=== PATIENT | male | born 1945 | race Caucasian/White ===

== ENCOUNTER 2016-07-08 21:01 | Emergency (ER) | payer BC, MEDICARE ==
[~2016-07-08] VITALS: Ht 175.3 cm; Wt 95.5 kg
[~2016-07-08 21:01] MED LIST: ALMACONE 360 M360 ML PO; AMOXICILLIN 8751 TAB PO; APRESOLINE PO; APRESOLINE50 MG PO; ASPIRIN 32325 MG/TAB PO; CARDI-OMEGA1000 MG PO; CARDIZEM CD 18180 MG PO; CARDIZEM LA120 MG PO; CELEBREX 200MG200 MG PO; CEPHALEXIN500 M1 PO; COLACE 100100 MG/CAP PO; COUMADIN 22.5 MG/TAB PO; COUMADIN 5MG5 MG/TAB PO; COUMADIN 77.5 MG/TAB PO; CUBICIN 500MG500 MG IV; DAZIDOX10 MG PO; DAZIDOX20 MG PO; DEBROX OT; DIGOXIN PO; DOXYCYCLINE 10100 MG PO; DULCOLAX S10 MG/SUPP RC; DULCOLAX TAB5 MG PO; ENDOCET 325 MG-1 TA1 PO; FERROUS SU325 MG/TAB PO; FISH OIL 1000MG1 CAP PO; FISH OIL1000 MG PO; FLAGYL500 MG PO; FLOMAX 0.40.4 MG/CAP PO; FLOMAX0.4 MG PO; FOLIC ACID PO; FORTAMET1000 MG PO; FUROSEMIDE20 MG PO; GABAPENTIN800 MG PO; GLUCOPHAGE1000 MG PO; GLUCOSAMINE/CHONDROI PO; GLUMETZA1000 MG PO; GLUMETZA500 MG PO; GLYBURIDE/METFORMIN PO; HEPARIN 50500 U/5 ML IV; HORIZANT600 MG PO; INVANZ1 G1 IV; IRON325 M1 PO; IRON325 M2 PO; JANTOVEN5 MG PO; K-DUR 2020 MEQ PO; KLOR-CON 1010 MEQ PO; KLOR-CON M2020 MEQ PO; LANTUS SOLOS100 U/ML SC; LANTUS100 U/ML SC; LANTUS100 U/ML SQ; LASIX 20MG TABL20 MG PO; LASIX 40MG TABL40 MG PO; LASIX20 MG PO; LEVAQUIN 5500 MG/TA1 PO; LISINOPRIL20 MG PO; LOPRESSOR 225 MG/TAB PO; LOPRESSOR100 MG PO; LOVENOX; LOVENOX 100100 MG/ML SQ; MAX-EPA1000 MG PO; MEGACE 40MG40 MG/TAB PO; METFORMIN1000 MG PO; METOPROLOL100 MG PO; MILK OF MA400 MG/52 PO; MINOCYCLIN100 MG/CAP PO; MULTI VITAMINS1 TAB PO; NABUMETONE750 MG PO; NEURONTIN600 MG/TAB PO; NORCO 325 MG-51 TAB PO; NORCO 325 MG-7.1 TAB PO; NORVASC 10MG10 MG PO; NORVASC10 MG PO; NS INT FLUSH 1010 ML IV; OXYCODONE30 MG PO; PERCOCET 325 MG1 TAB PO; PRAVACHOL 40MG40 MG PO; PREDNISONE10 MG PO; PRINIVIL20 MG PO; PROPAFENONE PO; PROTONIX 40MG T40 MG PO; PROTONIX40 MG PO; RIFADIN300 MG; RIFADIN300 MG PO; ROCEPHIN 2GM VIAL2 G IV; ROXICODONE 55 MG/TAB PO; RYTHMOL225 MG PO; SIMVASTATIN20 MG PO; STOOL SOFTENER100 M2 PO; TOPROL XL100 MG PO; TRIAMTERENE/HCT1 CAP PO; TRIAMTERENE/HCT1 TAB PO; TYLENOL 325MG325 MG PO; TYLENOL 500MG500 MG PO; TYLENOL SU650 MG/SUP RC; VANCOCIN H125 MG/CAP PO; VANCOCIN HCL500 MG IV; VANCOMYCIN 11 G/VIAL IV; VANCOMYCIN IV; VITAMIN C500 MG PO; VOLTAREN 75 DR75 MG PO; WHCH; XARELTO10 MG PO; ZAROXOLYN 2.52.5 MG PO; ZAROXOLYN5 MG PO; ZEBETA10 MG PO; ZOCOR20 MG PO; ZOLOFT 50MG50 MG PO; ZOLOFT50 MG PO; ZOVIRAX400 MG PO
[2016-07-08 21:09] VITALS: TEMP 98.6
[2016-07-08 22:06] LABS: BASO % 0.2 % (0.0-2.0); EOS % 0.5 % (0-4.0); GRAN # 7.1 (1.4-6.5); GRAN % 83.4 % (42.2-75.2); HEMATOCRIT 35.5 % (42.0-52.0); LYMPH # 0.6 (1.2-3.4); LYMPH % 7.2 % (20.0-51.0); MEAN CELL VOLUME 91 fl (80.0-100.0); MEAN CORPUSCULAR HEMOGLOBIN 31 pg (27.0-31.0); MEAN CORPUSCULAR HGB CONC 34 g/dl (33.0-37.0); MEAN PLATELET VOLUME 11.3 fl (7.4-10.4); MONO # 0.7 (0.1-0.6); MONO % 8.5 % (1.7-9.3); PLATELET COUNT 168 K/mm3 (130-400); REDCELL DISTRIBUTION WIDTH-CV 14.3 % (11.5-14.5); WHITE BLOOD COUNT 8.5 K/mm3 (4.8-10.8)
[2016-07-08 22:19] LABS: ALBUMIN 4.2 gm/dL (3.5-5.0); CALCIUM 9.2 mg/dL (8.4-10.2); CREATININE, serum 1.5 mg/dL (0.66-1.25); POTASSIUM 4.6 mmol/L (3.4-5.0); TOTAL PROTEIN 7.8 gm/dL (6.4-8.2)
[2016-07-08 22:48] LABS: INR 2.3 (0.8-3.0); PROTHROMBIN TIME 26.1 SECONDS (9.7-12.8)
[2016-07-08 23:37] LABS: PH 5 (5-8); SQUAMOUS EPITHELIAL 0-2 /hpf; URINE APPEARANCE Clear; URINE BACTERIA None Seen /hpf; URINE BILIRUBIN Negative (NEGATIVE); URINE BLOOD Negative (NEGATIVE); URINE COLOR Yellow; URINE GLUCOSE 1+ (NEGATIVE); URINE KETONE Negative (NEGATIVE); URINE UROBILINOGEN Negative (NEGATIVE); URINE WBC 0-2 /hpf
[2016-07-09 00:47] VITALS: BP 134/86; PULSE 74
== END 2016-07-09 00:51 | disposition home or self-care (01) ==
LOC: COL.ER 21:01
PROVIDERS: Emergency Medicine; Nurse Practitioner
DX: E86.0 Dehydration (principal); M25.522 Pain in left elbow; M79.602 Pain in left arm; R53.1 Weakness; R41.0 Disorientation, unspecified; I48.91 Unspecified atrial fibrillation; Z79.01 Long term (current) use of anticoagulants; E11.9 Type 2 diabetes mellitus without complications; Z79.84 Long term (current) use of oral hypoglycemic drugs; I11.0 Hypertensive heart disease with heart failure; I50.9 Heart failure, unspecified; Z86.73 Personal history of transient ischemic attack (TIA), and cerebral infarction without residual deficits; W06.XXXA Fall from bed, initial encounter; Y92.003 Bedroom of unspecified non-institutional (private) residence as the place of occurrence of the external cause
CPT/HCPCS: J7040

== ENCOUNTER 2016-09-24 15:15 | Outpatient (RCR) | payer BC, MEDICARE | END 2016-10-09 10:33 | disposition home or self-care (01) | LOC: WSPT 15:15 | DX: R53.1 Weakness (principal) | CPT/HCPCS: G8978-GP; G8979-GP; G8980-GP ==

== ENCOUNTER → 2016-11-25 | Outpatient (CLI) | payer BC, MEDICARE ==
[~2016-11-25] MED LIST changes: +OMEGA-3 1000 MG1 CAP PO; +ZOLOFT 100MG100 MG PO
== END ==
LOC: COL.RAD 08:00
DX: R41.0 Disorientation, unspecified (principal); R42 Dizziness and giddiness

== ENCOUNTER 2016-11-27 12:18 | Observation (INO) | payer BC, MEDICARE ==
[~2016-11-27] VITALS: Ht 175.3 cm; Wt 97.7 kg
[~2016-11-27 12:18] MED LIST changes: -OMEGA-3 1000 MG1 CAP PO; -ZOLOFT 100MG100 MG PO
[2016-11-27 13:53] LABS: BASO % 0.3 % (0.0-2.0); EOS # 0.1 (0.0-0.7); GRAN # 5.5 (1.4-6.5); GRAN % 77.9 % (42.2-75.2); LYMPH # 0.9 (1.2-3.4); LYMPH % 12.4 % (20.0-51.0); MEAN CELL VOLUME 92 fl (80.0-100.0); MEAN CORPUSCULAR HGB CONC 33 g/dl (33.0-37.0); MONO # 0.5 (0.1-0.6); MONO % 7.1 % (1.7-9.3); PLATELET COUNT 167 K/mm3 (130-400); RED BLOOD COUNT 3.95 M/mm3 (4.20-5.60); REDCELL DISTRIBUTION WIDTH-CV 14.3 % (11.5-14.5)
[2016-11-27 13:59] LABS: HEMATOCRIT 36.3 % (42.0-52.0); HEMOGLOBIN 11.9 g/dl (13.5-18.0); MEAN CORPUSCULAR HEMOGLOBIN 30 pg (27.0-31.0)
[2016-11-27 14:00] LABS: INR 1.8 (0.8-3.0); PROTHROMBIN TIME 20.4 SECONDS (9.7-12.8)
[2016-11-27 14:03] LABS: PARTIAL THROMBOPLASTIN TIME 34.9 SECONDS (26.0-37.0)
[2016-11-27 14:07] LABS: ADJUSTED CALCIUM 9.2 mg/dL (8.4-10.2); BILIRUBIN,TOTAL 0.7 mg/dL (0.0-1.0); CALCIUM 9.2 mg/dL (8.4-10.2); CREATININE, serum 1.53 mg/dL (0.66-1.25); POTASSIUM 4.4 mmol/L (3.4-5.0); TOTAL PROTEIN 6.8 gm/dL (6.4-8.2)
[2016-11-27 14:18] LABS: TROPONIN-I 0.02 ng/mL (0.000-0.034)
[2016-11-27] MEDS ORDERED: OMEGA-3 1000 MG1 CAP PO (17:17)
[2016-11-27] MEDS ORDERED: DOXYCYCLINE 10100 MG PO (18:59)
[2016-11-27 19:53] VITALS: BP 167/82; PULSE 57; TEMP 98.2
[2016-11-28] VITALS: BP 150/86; PULSE 80; TEMP 98.4
[2016-11-28 04:03] VITALS: BP 143/65; PULSE 82; TEMP 97.1
[2016-11-28 08:17] VITALS: BP 153/77; PULSE 65; TEMP 98.4
[2016-11-28 12:03] VITALS: BP 93/66; PULSE 108; TEMP 97.9
[2016-11-28 12:07] VITALS: BP 153/83; PULSE 93
== END 2016-11-28 16:26 | disposition home or self-care (01) ==
LOC: COL.ER 12:18 → MEDICAL 16:32
PROVIDERS: Emergency Medicine
DX: I48.2 Chronic atrial fibrillation (principal); I08.0 Rheumatic disorders of both mitral and aortic valves; M19.90 Unspecified osteoarthritis, unspecified site; E11.9 Type 2 diabetes mellitus without complications; I25.10 Atherosclerotic heart disease of native coronary artery without angina pectoris; I11.0 Hypertensive heart disease with heart failure; I50.9 Heart failure, unspecified; R41.82 Altered mental status, unspecified; Z79.01 Long term (current) use of anticoagulants; Z79.4 Long term (current) use of insulin; Z79.84 Long term (current) use of oral hypoglycemic drugs; Z96.653 Presence of artificial knee joint, bilateral; Z95.2 Presence of prosthetic heart valve
CPT/HCPCS: G0378

== ENCOUNTER 2017-02-05 14:02 | Observation (INO) | payer BC, MEDICARE ==
[~2017-02-05] VITALS: Ht 175.3 cm; Wt 99.4 kg
[~2017-02-05 14:02] MED LIST changes: +OMEGA-3 1000 MG1 CAP PO
[2017-02-05 15:57] VITALS: BP 174/90; PULSE 82; TEMP 97.7
[2017-02-05 20:33] VITALS: BP 178/106; PULSE 50; TEMP 99.1
[2017-02-06 00:44] VITALS: BP 188/86; PULSE 83; TEMP 98.4
[2017-02-06 03:43] VITALS: BP 160/92; PULSE 92; TEMP 97.5
[2017-02-06 08:08] VITALS: BP 156/105; PULSE 92; TEMP 98.1
[2017-02-06 08:19] LABS: THYROID STIMULATING HORMONE 1.25 uIU/mL (0.465-4.680); THYROXINE (T4)-TOTAL 8.6 ug/dL (5.5-11.0)
[2017-02-06 11:24] VITALS: BP 180/116; PULSE 69; TEMP 98.4
[2017-02-06 15:46] VITALS: BP 167/81; PULSE 83; TEMP 98.4
[2017-02-06 18:57] LABS: HOMOCYSTEINE 16.6 umol/L (5.5-16.2)
[2017-02-06 23:58] VITALS: BP 184/89; PULSE 82; TEMP 99.5
[2017-02-07 04:06] VITALS: BP 188/90; PULSE 82; TEMP 97.5
[2017-02-07 08:04] VITALS: BP 197/110; PULSE 75; TEMP 98.7
[2017-02-07 10:58] VITALS: BP 164/102; PULSE 63; TEMP 98.5
[2017-02-07 15:00] VITALS: BP 157/112
[2017-02-07 17:22] VITALS: BP 174/88; PULSE 92; TEMP 97.8
[2017-02-07 20:00] VITALS: BP 169/98; PULSE 75; TEMP 98.1
[2017-02-08] VITALS (7 sets, daily range): BP systolic 163–198; BP diastolic 83–110; PULSE 51–75; TEMP 97.7–98.4
[2017-02-08 14:59] LABS: ALBUMIN FRACTION 3.3 g/dL (2.6-4.5); ALBUMIN PERCENTAGE 54.3 % (48.7-61.8); ALPHA 1 FRACTION 0.4 g/dL (0.3-0.5); ALPHA 1 PERCENTAGE 6.7 % (3.4-8.3); ALPHA 2 FRACTION 0.8 g/dL (0.6-1.2); ALPHA 2 PERCENTAGE 13.5 % (8.4-17.5); BETA 1 FRACTION 0.4 g/dL (0.4-0.6); BETA 1 PERCENTAGE 6.5 % (5.4-8.9); BETA 2 FRACTION 0.4 g/dL (0.2-0.5); BETA 2 PERCENTAGE 6.7 % (3.8-7.7); GAMMA FRACTION 0.8 g/dL (0.4-1.7); GAMMA PERCENTAGE 12.3 % (8.1-23.0); SERUM PROTEIN TOTAL 6.1 g/dL (6.0-7.6)
[2017-02-09 03:24] VITALS: BP 184/88; PULSE 80; TEMP 98.3
[2017-02-09 07:39] VITALS: BP 182/95; PULSE 58; TEMP 98.9
[2017-02-09 11:35] VITALS: BP 157/94; PULSE 98; TEMP 98
[2017-02-09 15:37] VITALS: BP 162/96; PULSE 80; TEMP 97.7
[2017-02-09] MEDS ORDERED: ZOLOFT 100MG100 MG PO (16:01)
[2017-02-10 16:02] LABS: CADMIUM BLOOD 0.3 ng/mL (0.0-4.9); MERCURY,SERUM <1 ng/mL (0-9)
== END 2017-02-09 21:19 | disposition home health service (06) ==
LOC: MEDICAL 14:02
PROVIDERS: Psychiatry & Neurology Neurology
DX: M54.5 Low back pain (principal); E11.40 Type 2 diabetes mellitus with diabetic neuropathy, unspecified; I48.91 Unspecified atrial fibrillation; M86.9 Osteomyelitis, unspecified; I10 Essential (primary) hypertension; F32.9 Major depressive disorder, single episode, unspecified; D64.9 Anemia, unspecified; I35.8 Other nonrheumatic aortic valve disorders; I25.10 Atherosclerotic heart disease of native coronary artery without angina pectoris; G03.9 Meningitis, unspecified; Z79.01 Long term (current) use of anticoagulants; Z79.4 Long term (current) use of insulin; Z79.84 Long term (current) use of oral hypoglycemic drugs; Z96.653 Presence of artificial knee joint, bilateral; Z95.2 Presence of prosthetic heart valve; Z83.3 Family history of diabetes mellitus; Z82.3 Family history of stroke
CPT/HCPCS: G0378; G0379; G8978-GP; G8979-GP; G8987-GO; G8988-GO

== ENCOUNTER 2017-02-25 17:35 | Observation (INO) | payer BC, MEDICARE ==
[~2017-02-25] VITALS: Ht 175.3 cm; Wt 93.7 kg
[~2017-02-25 17:35] MED LIST changes: +ZOLOFT 100MG100 MG PO
[2017-02-25 18:23] VITALS: BP 133/94; PULSE 118; TEMP 98.3
[2017-02-25 18:48] LABS: BASO % 0.4 % (0.0-2.0); EOS % 0.4 % (0-4.0); GRAN # 6.3 (1.4-6.5); HEMATOCRIT 39.8 % (42.0-52.0); HEMOGLOBIN 12.8 g/dl (13.5-18.0); LYMPH # 0.9 (1.2-3.4); LYMPH % 11.3 % (20.0-51.0); MEAN CELL VOLUME 90 fl (80.0-100.0); MEAN CORPUSCULAR HEMOGLOBIN 29 pg (27.0-31.0); MEAN CORPUSCULAR HGB CONC 32 g/dl (33.0-37.0); MEAN PLATELET VOLUME 11.7 fl (7.4-10.4); MONO # 0.7 (0.1-0.6); MONO % 8.7 % (1.7-9.3); PLATELET COUNT 175 K/mm3 (130-400); RED BLOOD COUNT 4.41 M/mm3 (4.20-5.60); REDCELL DISTRIBUTION WIDTH-CV 14.7 % (11.5-14.5)
[2017-02-25 19:01] LABS: ALBUMIN 3.9 gm/dL (3.5-5.0); BILIRUBIN,TOTAL 0.9 mg/dL (0.0-1.0); C-REACTIVE PROTEIN 2.8 mg/dL (0.0-0.9); CALCIUM 8.9 mg/dL (8.4-10.2); CREATININE, serum 1.54 mg/dL (0.66-1.25); POTASSIUM 4.4 mmol/L (3.4-5.0)
[2017-02-25 21:11] LABS: ERYTHROCYTE SEDIMENTATION RATE 18 mm/hr (0-30)
[2017-02-25 21:40] VITALS: BP 136/85; PULSE 65; TEMP 97.1
[2017-02-26] VITALS: BP 158/95; PULSE 75; TEMP 97.9
[2017-02-26 07:59] VITALS: BP 170/93; PULSE 69; TEMP 97.6
[2017-02-26 12:12] VITALS: BP 166/95; PULSE 94; TEMP 97.4
[2017-02-26 16:13] VITALS: BP 131/74; PULSE 71; TEMP 98.4
[2017-02-26 19:55] VITALS: BP 140/77; PULSE 75; TEMP 97.9
[2017-02-27 00:33] VITALS: BP 157/91; PULSE 80; TEMP 97.8
[2017-02-27 04:24] VITALS: BP 175/98; PULSE 83; TEMP 97.9
[2017-02-27 07:40] VITALS: BP 164/110; PULSE 98; TEMP 97.3
[2017-02-27 12:14] VITALS: BP 172/100; PULSE 861; TEMP 98.7
== END 2017-02-27 16:51 | disposition home or self-care (01) ==
LOC: MEDICAL 17:35
PROVIDERS: Emergency Medicine
DX: R53.1 Weakness (principal); M86.60 Other chronic osteomyelitis, unspecified site; E11.9 Type 2 diabetes mellitus without complications; I10 Essential (primary) hypertension; N40.0 Benign prostatic hyperplasia without lower urinary tract symptoms; I48.91 Unspecified atrial fibrillation; F32.9 Major depressive disorder, single episode, unspecified; Z79.84 Long term (current) use of oral hypoglycemic drugs; Z79.01 Long term (current) use of anticoagulants
CPT/HCPCS: G0378; G0379; G8978-GP; G8979-GP

== ENCOUNTER 2017-04-15 21:33 | Emergency (ER) | payer BC, MEDICARE ==
[~2017-04-15] VITALS: Ht 172.7 cm; Wt 95.5 kg
[2017-04-15 21:37] VITALS: TEMP 98.9
[2017-04-15 22:06] LABS: BASO % 0.1 % (0.0-2.0); EOS # 0.1 (0.0-0.7); EOS % 1.6 % (0-4.0); GRAN # 6.2 (1.4-6.5); GRAN % 81.3 % (42.2-75.2); HEMATOCRIT 37.9 % (42.0-52.0); HEMOGLOBIN 12.2 g/dl (13.5-18.0); LYMPH # 0.8 (1.2-3.4); LYMPH % 10.6 % (20.0-51.0); MEAN CELL VOLUME 92 fl (80.0-100.0); MEAN CORPUSCULAR HEMOGLOBIN 30 pg (27.0-31.0); MEAN CORPUSCULAR HGB CONC 32 g/dl (33.0-37.0); MEAN PLATELET VOLUME 11.5 fl (7.4-10.4); MONO # 0.4 (0.1-0.6); MONO % 5.7 % (1.7-9.3); PLATELET COUNT 166 K/mm3 (130-400); RED BLOOD COUNT 4.12 M/mm3 (4.20-5.60); WHITE BLOOD COUNT 7.7 K/mm3 (4.8-10.8)
[2017-04-15 22:13] LABS: INR 1.7 (0.8-3.0); PROTHROMBIN TIME 19.7 SECONDS (9.7-12.8)
[2017-04-15 22:17] LABS: ADJUSTED CALCIUM 8.4 mg/dL (8.4-10.2); ALBUMIN 4.2 gm/dL (3.5-5.0); BILIRUBIN,TOTAL 0.6 mg/dL (0.0-1.0); CALCIUM 8.6 mg/dL (8.4-10.2); CREATININE, serum 1.25 mg/dL (0.66-1.25); POTASSIUM 3.7 mmol/L (3.4-5.0); TOTAL PROTEIN 7.5 gm/dL (6.4-8.2)
[2017-04-15] MEDS ORDERED: ZOLOFT 50MG50 MG PO (22:21)
[2017-04-15] MEDS ORDERED: ZESTRIL 20MG TA20 MG PO (22:22)
[2017-04-15] MEDS ORDERED: NORCO 325 MG-7.1 TAB PO (22:22)
[2017-04-15 22:27] LABS: TROPONIN-I 0.015 ng/mL (0.000-0.034)
[2017-04-15 23:03] VITALS: BP 173/113; PULSE 109
== END 2017-04-15 23:03 | disposition short-term general hospital (02) ==
LOC: COL.ER 21:33
PROVIDERS: Family Medicine
DX: S06.6X0A Traumatic subarachnoid hemorrhage without loss of consciousness, initial encounter (principal); S06.5X0A Traumatic subdural hemorrhage without loss of consciousness, initial encounter; I48.91 Unspecified atrial fibrillation; I25.10 Atherosclerotic heart disease of native coronary artery without angina pectoris; Z79.84 Long term (current) use of oral hypoglycemic drugs; Z79.01 Long term (current) use of anticoagulants; Z95.1 Presence of aortocoronary bypass graft; Z96.659 Presence of unspecified artificial knee joint; Z98.890 Other specified postprocedural states; W19.XXXA Unspecified fall, initial encounter; Y92.009 Unspecified place in unspecified non-institutional (private) residence as the place of occurrence of the external cause
CPT/HCPCS: C9132; J2405; J3430; J7050

== ENCOUNTER 2017-04-22 13:28 | Inpatient (IN) | payer BC, MEDICARE ==
[~2017-04-22] VITALS: Ht 172.7 cm; Wt 88.1 kg
[~2017-04-22 13:28] MED LIST changes: +ZESTRIL40 MG PO; +ZOLOFT 25MG25 MG PO
[2017-04-22] MEDS ORDERED: AMOXICILLIN 8751 TAB PO (14:52)
[2017-04-22] MEDS ORDERED: CATAPRES 0.1MG0.1 MG PO (14:53)
[2017-04-22] MEDS ORDERED: APRESOLINE 25MG25 MG PO (14:54)
[2017-04-22] MEDS ORDERED: DEPAKENE250 MG PO (14:56)
[2017-04-22] MEDS ORDERED: TIAZAC300 MG PO (14:57)
[2017-04-22] MEDS ORDERED: OXY IR5 MG PO (15:01)
[2017-04-22] MEDS ORDERED: IRON TABLETS325 MG PO (15:06)
[2017-04-22 17:15] VITALS: BP 155/98; PULSE 93; TEMP 97.9
[2017-04-22 19:39] VITALS: BP 178/100; PULSE 90; TEMP 97.6
[2017-04-22 19:40] VITALS: BP 178/100; PULSE 90; TEMP 97.6
[2017-04-22 20:03] VITALS: BP 160/83
[2017-04-23 04:26] VITALS: BP 154/97; PULSE 91; TEMP 98.1
[2017-04-23 08:33] LABS: CALCIUM 9.1 mg/dL (8.4-10.2); CREATININE, serum 0.8 mg/dL (0.66-1.25); POTASSIUM 3.3 mmol/L (3.4-5.0)
[2017-04-23 14:28] VITALS: BP 113/68; PULSE 55; TEMP 96.5
[2017-04-23 18:20] VITALS: BP 132/74; PULSE 64; TEMP 97.8
[2017-04-23 21:20] VITALS: BP 147/84; PULSE 87
[2017-04-24 01:00] VITALS: BP 119/74; PULSE 90
[2017-04-24 04:54] VITALS: BP 129/85; PULSE 87; TEMP 98.1
[2017-04-24 12:24] VITALS: BP 123/65; PULSE 75
[2017-04-24 18:12] VITALS: BP 129/66
[2017-04-25 06:00] VITALS: BP 147/92; PULSE 91; TEMP 98.2
[2017-04-25 18:03] VITALS: BP 155/69; PULSE 66; TEMP 97.7
[2017-04-25 21:15] VITALS: BP 143/75; PULSE 91; TEMP 98.4
[2017-04-26 05:11] VITALS: BP 156/84; PULSE 128; TEMP 98.3
[2017-04-26 07:33] LABS: MEAN CELL VOLUME 90 fl (80.0-100.0); MEAN CORPUSCULAR HGB CONC 33 g/dl (33.0-37.0); MEAN PLATELET VOLUME 11.4 fl (7.4-10.4); PLATELET COUNT 223 K/mm3 (130-400); RED BLOOD COUNT 3.75 M/mm3 (4.20-5.60)
[2017-04-26 07:36] LABS: HEMATOCRIT 33.6 % (42.0-52.0); HEMOGLOBIN 11.2 g/dl (13.5-18.0); MEAN CORPUSCULAR HEMOGLOBIN 30 pg (27.0-31.0)
[2017-04-26 07:46] LABS: CALCIUM 9.1 mg/dL (8.4-10.2); CREATININE, serum 1.03 mg/dL (0.66-1.25); POTASSIUM 3.9 mmol/L (3.4-5.0)
[2017-04-26 08:01] LABS: ERYTHROCYTE SEDIMENTATION RATE 20 mm/hr (0-30)
[2017-04-26 18:00] VITALS: BP 14/72; PULSE 63; TEMP 97.8
[2017-04-26 20:30] VITALS: BP 146/84; PULSE 84; TEMP 98.4
[2017-04-27 06:02] VITALS: BP 124/74; PULSE 85; TEMP 98.2
[2017-04-27 12:04] VITALS: BP 123/80; PULSE 90
[2017-04-27 14:25] VITALS: BP 129/84; PULSE 84
[2017-04-27 18:30] VITALS: BP 135/76; PULSE 70; TEMP 97.8
[2017-04-27 21:00] VITALS: BP 161/66; PULSE 100
[2017-04-28 05:14] VITALS: BP 163/81; PULSE 63; TEMP 98.8
[2017-04-28 18:32] VITALS: BP 146/80; PULSE 69; TEMP 98.3
[2017-04-28 23:40] VITALS: BP 159/75; PULSE 65
[2017-04-29 05:14] VITALS: BP 137/88; PULSE 64; TEMP 98.4
[2017-04-29 12:27] VITALS: BP 102/75; PULSE 75
[2017-04-29 15:12] VITALS: BP 108/73; PULSE 60; TEMP 98.1
[2017-04-29 16:56] LABS: ADJUSTED CALCIUM 10.1 mg/dL (8.4-10.2); ALBUMIN 3.4 gm/dL (3.5-5.0); BILIRUBIN,TOTAL 0.5 mg/dL (0.0-1.0); CALCIUM 9.6 mg/dL (8.4-10.2); CREATININE, serum 1.29 mg/dL (0.66-1.25); POTASSIUM 4.6 mmol/L (3.4-5.0); TOTAL PROTEIN 6.6 gm/dL (6.4-8.2)
[2017-04-29 17:17] VITALS: BP 116/66; PULSE 53; TEMP 97.7
[2017-04-29 21:31] VITALS: BP 121/75; PULSE 65
[2017-04-30 05:25] VITALS: BP 128/69; PULSE 65; TEMP 98.5
[2017-04-30 13:20] LABS: CALCIUM 9.9 mg/dL (8.4-10.2); CREATININE, serum 1.2 mg/dL (0.66-1.25); POTASSIUM 4.9 mmol/L (3.4-5.0)
[2017-04-30 16:55] VITALS: BP 152/93; PULSE 102; TEMP 97.2
[2017-04-30 18:04] VITALS: TEMP 98
[2017-05-01 04:50] VITALS: BP 149/80; PULSE 76; TEMP 96.5
[2017-05-01 16:38] VITALS: BP 128/58; PULSE 115; TEMP 97.8
[2017-05-02 05:39] VITALS: BP 150/82; PULSE 83; TEMP 97.5
[2017-05-02 18:20] VITALS: BP 160/89; PULSE 63; TEMP 98
[2017-05-02 22:06] VITALS: BP 144/85
[2017-05-03 04:51] VITALS: BP 142/78; PULSE 69; TEMP 98.4
[2017-05-03 17:00] VITALS: BP 134/65; PULSE 50; TEMP 98.6
[2017-05-04 05:16] VITALS: BP 156/72; PULSE 81; TEMP 97.7
[2017-05-04 15:07] LABS: .COPPER,S 1.27 mcg/mL (())
[2017-05-04 16:21] VITALS: BP 115/66; PULSE 56; TEMP 97.6
[2017-05-05 06:17] VITALS: BP 156/68; PULSE 75; TEMP 98.8
[2017-05-05 18:18] VITALS: BP 120/67; PULSE 62; TEMP 97.7
[2017-05-06 05:33] VITALS: BP 188/73; PULSE 75; TEMP 98.3
[2017-05-06 08:52] VITALS: BP 142/76; PULSE 101; TEMP 98.1
[2017-05-06 10:35] LABS: CEREBROSPINAL TUBE #4
[2017-05-06 10:36] LABS: CSF APPEARANCE CLEAR; CSF COLOR YELLOW
[2017-05-06 10:55] LABS: CSF POLYMORPHONUCLEAR 0 % (0-6)
[2017-05-06 15:49] VITALS: BP 146/82; PULSE 60; TEMP 98.7
[2017-05-07 05:04] VITALS: BP 152/74; PULSE 76; TEMP 98.3
[2017-05-07 13:58] LABS: THYROXINE (T4)-TOTAL 8.9 ug/dL (5.5-11.0)
[2017-05-07 14:11] LABS: THYROID STIMULATING HORMONE 2.42 uIU/mL (0.465-4.680)
[2017-05-07 15:08] VITALS: BP 168/63; PULSE 58; TEMP 97.9
[2017-05-07 16:14] LABS: ARTERIAL BLD GAS TCO2 CT 29.7; ARTERIAL BLOOD GAS BASE EXCESS 4.2 (-2-2); ARTERIAL BLOOD GAS HCO3 28.5 meq/L (22-26); ARTERIAL BLOOD GAS PHT 7.46 C (7.35-7.45); ARTERIAL BLOOD GAS PO2 79.3 mmHg (80-100); ARTERIAL BLOOD GAS PO2T 79.3 (80-100); ARTERIAL BLOOD GAS pH 7.46 (7.35-7.45); OXYHEMOGLOBIN 94.1 %
[2017-05-07 16:15] LABS: ALLEN TEST YES; ALLENS TEST RESULT PASS; ATS? YES
[2017-05-07 16:48] LABS: MEAN CELL VOLUME 93 fl (80.0-100.0); MEAN CORPUSCULAR HGB CONC 33 g/dl (33.0-37.0); MEAN PLATELET VOLUME 10.8 fl (7.4-10.4); PLATELET COUNT 181 K/mm3 (130-400); RED BLOOD COUNT 3.58 M/mm3 (4.20-5.60)
[2017-05-07 16:49] LABS: ADD PATHOLOGY DIFF REVIEW NO; HEMATOCRIT 33.3 % (42.0-52.0); HEMOGLOBIN 10.9 g/dl (13.5-18.0); MEAN CORPUSCULAR HEMOGLOBIN 30 pg (27.0-31.0)
[2017-05-07 16:57] LABS: INR 1.1 (0.8-3.0); PROTHROMBIN TIME 11.9 SECONDS (9.7-12.8)
[2017-05-07 16:59] LABS: PARTIAL THROMBOPLASTIN TIME 28.5 SECONDS (26.0-37.0)
[2017-05-07 17:02] LABS: ADJUSTED CALCIUM 9.9 mg/dL (8.4-10.2); ALBUMIN 3.9 gm/dL (3.5-5.0); BILIRUBIN,TOTAL 0.5 mg/dL (0.0-1.0); CALCIUM 9.8 mg/dL (8.4-10.2); CREATININE, serum 1.29 mg/dL (0.66-1.25); POTASSIUM 4.3 mmol/L (3.4-5.0); TOTAL PROTEIN 6.9 gm/dL (6.4-8.2)
[2017-05-07 17:04] VITALS: BP 155/73; PULSE 62; TEMP 98.3
[2017-05-07 17:20] LABS: BAND 5 % (0-10); EOSINOPHIL 1 % (0-4); LYMPHOCYTE 8 % (20.0-51.0); NEUTROPHILS 81 % (42.0-75.2); PLATELET ESTIMATE NORMAL (NORMAL); TOTAL CELLS COUNTED 100
[2017-05-10 14:23] LABS: ALBUMIN FRACTION 3.8 g/dL (2.6-4.5); ALBUMIN PERCENTAGE 53.6 % (48.7-61.8); ALPHA 1 FRACTION 0.4 g/dL (0.3-0.5); ALPHA 1 PERCENTAGE 5.5 % (3.4-8.3); ALPHA 2 FRACTION 0.9 g/dL (0.6-1.2); ALPHA 2 PERCENTAGE 12.9 % (8.4-17.5); BETA 1 FRACTION 0.5 g/dL (0.4-0.6); BETA 1 PERCENTAGE 6.5 % (5.4-8.9); BETA 2 FRACTION 0.5 g/dL (0.2-0.5); BETA 2 PERCENTAGE 7.1 % (3.8-7.7); GAMMA PERCENTAGE 14.4 % (8.1-23.0)
[2017-05-11 19:11] LABS: ZINC,S 0.85 mcg/mL (())
== END 2017-05-07 17:35 | disposition short-term general hospital (02) | DRG 949 ==
PROVIDERS: Emergency Medicine; Internal Medicine; Psychiatry & Neurology Neurology
PROC: 009U3ZX Drainage of Spinal Canal, Percutaneous Approach, Diagnostic (ICD-10-PCS; principal; 2017-05-06)
DX: S06.6X0D Traumatic subarachnoid hemorrhage without loss of consciousness, subsequent encounter (principal); I50.32 Chronic diastolic (congestive) heart failure; G91.2 (Idiopathic) normal pressure hydrocephalus; S06.320D Contusion and laceration of left cerebrum without loss of consciousness, subsequent encounter; W18.30XD Fall on same level, unspecified, subsequent encounter; I25.10 Atherosclerotic heart disease of native coronary artery without angina pectoris; I11.0 Hypertensive heart disease with heart failure; E11.9 Type 2 diabetes mellitus without complications; I48.0 Paroxysmal atrial fibrillation; Z79.01 Long term (current) use of anticoagulants; Z95.2 Presence of prosthetic heart valve
CPT/HCPCS: 99222-AI; 99232-AI; 99233-AI; 99239; J1815; J3420

== ENCOUNTER → 2017-05-19 | Outpatient (REF) ==
[~2017-05-19] MED LIST changes: +APRESOLINE 25MG25 MG PO; +CATAPRES 0.1MG0.1 MG PO; +DEPAKENE250 MG PO; +IRON TABLETS325 MG PO; +OXY IR5 MG PO; +TIAZAC300 MG PO
[2017-05-19 17:46] LABS: BASO % 0.7 % (0.0-2.0); EOS # 0.2 (0.0-0.7); EOS % 3.3 % (0-4.0); GRAN # 4.3 (1.4-6.5); GRAN % 73.9 % (42.2-75.2); LYMPH # 0.9 (1.2-3.4); LYMPH % 14.6 % (20.0-51.0); MEAN CELL VOLUME 95 fl (80.0-100.0); MEAN CORPUSCULAR HGB CONC 33 g/dl (33.0-37.0); MEAN PLATELET VOLUME 11.3 fl (7.4-10.4); MONO # 0.4 (0.1-0.6); MONO % 6.3 % (1.7-9.3); PLATELET COUNT 252 K/mm3 (130-400); RED BLOOD COUNT 3.65 M/mm3 (4.20-5.60); WHITE BLOOD COUNT 5.8 K/mm3 (4.8-10.8)
[2017-05-19 17:48] LABS: HEMATOCRIT 34.6 % (42.0-52.0); HEMOGLOBIN 11.3 g/dl (13.5-18.0); MEAN CORPUSCULAR HEMOGLOBIN 31 pg (27.0-31.0)
[2017-05-19 17:59] LABS: ADJUSTED CALCIUM 9.8 mg/dL (8.4-10.2); ALBUMIN 3.9 gm/dL (3.5-5.0); BILIRUBIN,TOTAL 0.3 mg/dL (0.0-1.0); C-REACTIVE PROTEIN 0.9 mg/dL (0.0-0.9); CALCIUM 9.7 mg/dL (8.4-10.2); CREATININE, serum 1.25 mg/dL (0.66-1.25); POTASSIUM 3.5 mmol/L (3.4-5.0); TOTAL PROTEIN 6.9 gm/dL (6.4-8.2)
[2017-05-19 18:21] LABS: ERYTHROCYTE SEDIMENTATION RATE 22 mm/hr (0-30)
== END ==
LOC: ZLAB.STJ 17:38
PROVIDERS: Emergency Medicine
DX: E11.59 Type 2 diabetes mellitus with other circulatory complications (principal); R70.0 Elevated erythrocyte sedimentation rate

== ENCOUNTER → 2017-06-02 | Outpatient (CLI) | payer BC, MEDICARE | LOC: COL.RAD 12:46 | DX: G91.0 Communicating hydrocephalus (principal); Z98.2 Presence of cerebrospinal fluid drainage device ==

== ENCOUNTER → 2017-07-20 | Outpatient (CLI) | payer BC, MEDICARE | LOC: COL.RAD 07:10 | DX: I67.82 Cerebral ischemia (principal); G31.9 Degenerative disease of nervous system, unspecified ==

== ENCOUNTER → 2017-08-04 | Outpatient (CLI) | payer BC, MEDICARE | LOC: COL.RAD 13:20 | DX: I62.00 Nontraumatic subdural hemorrhage, unspecified (principal); G93.89 Other specified disorders of brain ==

== ENCOUNTER 2017-08-10 17:52 | Emergency (ER) | payer BC, MEDICARE ==
[~2017-08-10] VITALS: Ht 175.3 cm; Wt 93.2 kg
[2017-08-10 17:52] VITALS: TEMP 97.2
[2017-08-10 18:08] LABS: BASO % 0.3 % (0.0-2.0); EOS % 0.3 % (0-4.0); GRAN # 5.4 (1.4-6.5); GRAN % 80.2 % (42.2-75.2); HEMOGLOBIN 12.2 g/dl (13.5-18.0); LYMPH # 0.8 (1.2-3.4); LYMPH % 11.5 % (20.0-51.0); MEAN CELL VOLUME 97 fl (80.0-100.0); MEAN CORPUSCULAR HEMOGLOBIN 32 pg (27.0-31.0); MEAN CORPUSCULAR HGB CONC 33 g/dl (33.0-37.0); MEAN PLATELET VOLUME 11.4 fl (7.4-10.4); MONO # 0.5 (0.1-0.6); MONO % 7.1 % (1.7-9.3); PLATELET COUNT 176 K/mm3 (130-400); RED BLOOD COUNT 3.77 M/mm3 (4.20-5.60); REDCELL DISTRIBUTION WIDTH-CV 13.8 % (11.5-14.5)
[2017-08-10 18:25] LABS: ALBUMIN 4.6 gm/dL (3.5-5.0); BILIRUBIN,TOTAL 0.8 mg/dL (0.0-1.0); CALCIUM 7.9 mg/dL (8.4-10.2); CREATININE, serum 1.39 mg/dL (0.66-1.25); HEMATOCRIT 36.5 % (42.0-52.0); TOTAL PROTEIN 7.7 gm/dL (6.4-8.2)
[2017-08-10 18:34] LABS: POTASSIUM 2.6 mmol/L (3.4-5.0)
[2017-08-10] MEDS ORDERED: OMEGA-3 1000 MG1 CAP PO (18:58)
[2017-08-10] MEDS ORDERED: CARDIZEM 60MG T60 MG PO (18:58)
[2017-08-10] MEDS ORDERED: CATAPRES 0.1MG0.1 MG PO (18:59)
[2017-08-10] MEDS ORDERED: APRESOLINE 25MG25 MG PO (18:59)
[2017-08-10] MEDS ORDERED: ZOLOFT 100MG100 MG PO (19:00)
[2017-08-10] MEDS ORDERED: LASIX 40MG TABL40 MG PO (19:00)
[2017-08-10] MEDS ORDERED: GLUCOPHAGE1000 MG PO (19:00)
[2017-08-10] MEDS ORDERED: PRAVACHOL 40MG40 MG PO (19:01)
[2017-08-10] MEDS ORDERED: NORCO 325 MG-51 TAB PO (19:01)
[2017-08-10] MEDS ORDERED: FLOMAX 0.40.4 MG/CAP PO (19:01)
[2017-08-10] MEDS ORDERED: PROTONIX 40MG T40 MG PO (19:01)
[2017-08-10] MEDS ORDERED: APRESOLINE 10MG10 MG PO (19:02)
[2017-08-10] MEDS ORDERED: DOXYCYCLINE 10100 MG PO (19:02)
[2017-08-10] MEDS ORDERED: ZEBETA10 MG PO (19:02)
[2017-08-10] MEDS ORDERED: VITAMIN C500 MG PO (19:02)
[2017-08-10 19:38] LABS: INR 1.2 (0.8-3.0); PROTHROMBIN TIME 13.8 SECONDS (9.7-12.8)
[2017-08-10 21:15] VITALS: BP 128/90; PULSE 109
== END 2017-08-10 21:15 | disposition short-term general hospital (02) ==
LOC: COL.ER 17:52
PROVIDERS: Family Medicine
DX: S06.5X9A Traumatic subdural hemorrhage with loss of consciousness of unspecified duration, initial encounter (principal); R56.9 Unspecified convulsions; R06.81 Apnea, not elsewhere classified; I10 Essential (primary) hypertension; E11.9 Type 2 diabetes mellitus without complications; I48.91 Unspecified atrial fibrillation; Z98.2 Presence of cerebrospinal fluid drainage device; Z79.84 Long term (current) use of oral hypoglycemic drugs; X58.XXXA Exposure to other specified factors, initial encounter
CPT/HCPCS: A4314; J0330; J1953; J2060; J2250; J2405; J2704; J3480; J7050; Q2009

== ENCOUNTER → 2017-09-07 | Outpatient (CLI) | payer BC, MEDICARE ==
[~2017-09-07] MED LIST changes: +APRESOLINE 10MG10 MG PO; +CARDIZEM 60MG T60 MG PO
== END ==
LOC: COL.RAD 12:34
DX: I62.00 Nontraumatic subdural hemorrhage, unspecified (principal); Z98.2 Presence of cerebrospinal fluid drainage device

== ENCOUNTER 2017-10-17 11:06 | Inpatient (IN) | payer BC, MEDICARE ==
[2017-10-17] VITALS (603 sets, daily range): BP systolic 142–198; BP diastolic 78–114; PULSE 45–76; TEMP 97.3–98.2; O2SAT 90–100
[~2017-10-17] VITALS: Ht 185.4 cm; Wt 86.4 kg
[2017-10-17 11:33] LABS: BASO % 0.5 % (0.0-2.0); EOS # 0.1 (0.0-0.7); EOS % 1.8 % (0-4.0); GRAN # 3.3 (1.4-6.5); GRAN % 76.2 % (42.2-75.2); LYMPH # 0.6 (1.2-3.4); LYMPH % 13.5 % (20.0-51.0); MEAN CELL VOLUME 94 fl (80.0-100.0); MEAN CORPUSCULAR HGB CONC 34 g/dl (33.0-37.0); MEAN PLATELET VOLUME 10.7 fl (7.4-10.4); MONO # 0.3 (0.1-0.6); MONO % 7.8 % (1.7-9.3); PLATELET COUNT 151 K/mm3 (130-400); RED BLOOD COUNT 3.62 M/mm3 (4.20-5.60); REDCELL DISTRIBUTION WIDTH-CV 13.5 % (11.5-14.5)
[2017-10-17 11:38] LABS: HEMOGLOBIN 11.4 g/dl (13.5-18.0); MEAN CORPUSCULAR HEMOGLOBIN 31 pg (27.0-31.0)
[2017-10-17] MEDS ORDERED: MAG-OX 400400 MG/TAB PO (11:39)
[2017-10-17] MEDS ORDERED: KEPPRA1000 MG PO (11:39)
[2017-10-17] MEDS ORDERED: K-DUR20 MEQ PO (11:40)
[2017-10-17 11:41] LABS: INR 1.1 (0.8-3.0); PROTHROMBIN TIME 12.3 SECONDS (9.7-12.8)
[2017-10-17 11:43] LABS: ALANINE AMINOTRANSFERASE 23 U/L (21-72); ALBUMIN 4.1 gm/dL (3.5-5.0); ALKALINE PHOSPHATASE 61 U/L (50-136); ANION GAP 16 mmol/L (7-16); AST,SGOT 17 U/L (15-37); BILIRUBIN,TOTAL 0.5 mg/dL (0.0-1.0); BLOOD UREA NITROGEN 31 mg/dL (9-20); CALCIUM 9.7 mg/dL (8.4-10.2); CARBON DIOXIDE 28 mmol/L (22-30); CHLORIDE 100 mmol/L (98-107); CREATININE, serum 1.21 mg/dL (0.66-1.25); GLUCOSE 189 mg/dL (74-106); POTASSIUM 3.8 mmol/L (3.4-5.0); SODIUM 144 mmol/L (137-145); TOTAL PROTEIN 7.3 gm/dL (6.4-8.2)
[2017-10-17 11:54] LABS: TROPONIN-I < 0.012 ng/mL (0.000-0.034)
[2017-10-17 12:28] LABS: COLLECTION METHOD CLEAN CATCH
[2017-10-17 12:58] LABS: PH 5 (5-8); SQUAMOUS EPITHELIAL 0-2 /hpf; URINE APPEARANCE Cloudy; URINE BACTERIA Many /hpf; URINE BILIRUBIN Negative (NEGATIVE); URINE BLOOD Negative (NEGATIVE); URINE COLOR Yellow; URINE GLUCOSE 1+ (NEGATIVE); URINE KETONE Negative (NEGATIVE); URINE LEUKOCYTE ESTERASE 3+ (NEGATIVE); URINE NITRATE Positive (NEGATIVE); URINE PROTEIN(semi-quant) 2+ (NEGATIVE); URINE UROBILINOGEN Negative (NEGATIVE)
[2017-10-17] MEDS ORDERED: HYDRALAZINE HC100 MG PO ×2 (16:02)
[2017-10-17] MEDS ORDERED: ANTI-DIARRHEAL2 MG PO (16:08)
[2017-10-18] VITALS (1034 sets, daily range): BP systolic 157–194; BP diastolic 80–125; PULSE 69–97; TEMP 98–98.4; O2SAT 84–99
[2017-10-18 06:33] LABS: CREATININE, serum 0.88 mg/dL (0.66-1.25); POTASSIUM 3.4 mmol/L (3.4-5.0)
[2017-10-18] MEDS ORDERED: HYDRALAZINE HC100 MG PO (17:30)
[2017-10-18] MEDS ORDERED: APRESOLINE 220 MG/ML IV (17:30)
== END 2017-10-18 19:00 | disposition short-term general hospital (02) | DRG 65 ==
LOC: COL.ER 11:06 → ICU 12:26
PROVIDERS: Emergency Medicine
DX: I61.8 Other nontraumatic intracerebral hemorrhage (principal); I50.32 Chronic diastolic (congestive) heart failure; N39.0 Urinary tract infection, site not specified; G91.2 (Idiopathic) normal pressure hydrocephalus; I48.2 Chronic atrial fibrillation; I25.10 Atherosclerotic heart disease of native coronary artery without angina pectoris; I11.0 Hypertensive heart disease with heart failure; E11.9 Type 2 diabetes mellitus without complications; Z86.718 Personal history of other venous thrombosis and embolism; Z79.01 Long term (current) use of anticoagulants; B96.1 Klebsiella pneumoniae [K. pneumoniae] as the cause of diseases classified elsewhere; Z95.2 Presence of prosthetic heart valve
CPT/HCPCS: J0360; J0696; J2060; J7030

== ENCOUNTER 2017-10-30 07:04 | Emergency (ER) | payer BC, MEDICARE ==
[~2017-10-30] VITALS: Ht 185.4 cm; Wt 81.8 kg
[~2017-10-30 07:04] MED LIST changes: +ANTI-DIARRHEAL2 MG PO; +APRESOLINE 220 MG/ML IV; +HYDRALAZINE HC100 MG PO; +K-DUR20 MEQ PO; +KEPPRA1000 MG PO; +MAG-OX 400400 MG/TAB PO
[2017-10-30 07:07] VITALS: TEMP 97.6
[2017-10-30 07:54] LABS: BASO % 0.3 % (0.0-2.0); EOS % 0.5 % (0-4.0); GRAN # 6.6 (1.4-6.5); GRAN % 86.5 % (42.2-75.2); HEMOGLOBIN 12.6 g/dl (13.5-18.0); LYMPH # 0.5 (1.2-3.4); LYMPH % 6.9 % (20.0-51.0); MEAN CELL VOLUME 92 fl (80.0-100.0); MEAN CORPUSCULAR HEMOGLOBIN 32 pg (27.0-31.0); MEAN CORPUSCULAR HGB CONC 35 g/dl (33.0-37.0); MEAN PLATELET VOLUME 10.6 fl (7.4-10.4); MONO # 0.4 (0.1-0.6); MONO % 5.4 % (1.7-9.3); PLATELET COUNT 175 K/mm3 (130-400); RED BLOOD COUNT 3.97 M/mm3 (4.20-5.60); REDCELL DISTRIBUTION WIDTH-CV 13.5 % (11.5-14.5)
[2017-10-30 07:55] LABS: HEMATOCRIT 36.4 % (42.0-52.0)
[2017-10-30 07:59] LABS: INR 1.1 (0.8-3.0); PROTHROMBIN TIME 12.4 SECONDS (9.7-12.8)
[2017-10-30 08:02] LABS: PARTIAL THROMBOPLASTIN TIME 22.2 SECONDS (26.0-37.0)
[2017-10-30 08:03] LABS: ALBUMIN 4.1 gm/dL (3.5-5.0); BILIRUBIN,TOTAL 0.8 mg/dL (0.0-1.0); CALCIUM 9.5 mg/dL (8.4-10.2); CREATININE, serum 1.13 mg/dL (0.66-1.25); MAGNESIUM 1.6 mg/dL (1.6-2.3); PHOSPHOROUS 3.4 mg/dL (2.5-4.5); TOTAL PROTEIN 7.5 gm/dL (6.4-8.2)
[2017-10-30 08:05] LABS: POTASSIUM 2.9 mmol/L (3.4-5.0)
[2017-10-30 08:14] LABS: TROPONIN-I 0.017 ng/mL (0.000-0.034)
[2017-10-30 08:50] VITALS: BP 152/93; PULSE 92
[2017-10-30] MEDS ORDERED: PRINIVIL40 MG PO (09:11)
[2017-10-30] MEDS ORDERED: NORVASC 10MG10 MG PO (09:11)
[2017-10-30] MEDS ORDERED: COLACE 100100 MG/CAP PO (09:15)
== END 2017-10-30 09:56 | disposition other institution (70) ==
LOC: COL.ER 07:04
PROVIDERS: Emergency Medicine
DX: S06.5X0A Traumatic subdural hemorrhage without loss of consciousness, initial encounter (principal); S06.360A Traumatic hemorrhage of cerebrum, unspecified, without loss of consciousness, initial encounter; I48.91 Unspecified atrial fibrillation; I25.10 Atherosclerotic heart disease of native coronary artery without angina pectoris; Z98.2 Presence of cerebrospinal fluid drainage device; Z79.84 Long term (current) use of oral hypoglycemic drugs; W19.XXXA Unspecified fall, initial encounter; Y92.129 Unspecified place in nursing home as the place of occurrence of the external cause
CPT/HCPCS: J3010; J3480

== ENCOUNTER → 2017-11-12 | Outpatient (REF) ==
[~2017-11-12] MED LIST changes: +PRINIVIL40 MG PO
[2017-11-12 09:47] LABS: ALBUMIN 3.7 gm/dL (3.5-5.0); BILIRUBIN,TOTAL 0.7 mg/dL (0.0-1.0); CALCIUM 9.7 mg/dL (8.4-10.2); CREATININE, serum 1.01 mg/dL (0.66-1.25); POTASSIUM 3.4 mmol/L (3.4-5.0)
[2017-11-12 10:16] LABS: THYROID STIMULATING HORMONE 1.55 uIU/mL (0.465-4.680)
== END ==
LOC: ZLAB.STJ 09:26
PROVIDERS: Emergency Medicine
DX: Z01.89 Encounter for other specified special examinations (principal)

== ENCOUNTER 2017-12-13 19:01 | Observation (INO) | payer BC, MEDICARE ==
[~2017-12-13] VITALS: Ht 175.3 cm; Wt 78.0 kg
[~2017-12-13 19:01] MED LIST changes: +CATAPRES-TTS 20.2 M1 TD
[2017-12-13 19:58] LABS: ALBUMIN 3.5 gm/dL (3.5-5.0); BILIRUBIN,TOTAL 0.4 mg/dL (0.0-1.0); CALCIUM 9.4 mg/dL (8.4-10.2); CREATININE, serum 1.07 mg/dL (0.66-1.25)
[2017-12-13 20:10] LABS: TROPONIN-I 0.012 ng/mL (0.000-0.034)
[2017-12-13 20:13] LABS: BASO % 0.4 % (0.0-2.0); EOS # 0.1 (0.0-0.7); EOS % 2.6 % (0-4.0); GRAN # 3.5 (1.4-6.5); GRAN % 74.6 % (42.2-75.2); HEMATOCRIT 33.3 % (42.0-52.0); HEMOGLOBIN 10.9 g/dl (13.5-18.0); LYMPH # 0.7 (1.2-3.4); MEAN CELL VOLUME 95 fl (80.0-100.0); MEAN CORPUSCULAR HEMOGLOBIN 31 pg (27.0-31.0); MEAN CORPUSCULAR HGB CONC 33 g/dl (33.0-37.0); MEAN PLATELET VOLUME 10.9 fl (7.4-10.4); MONO # 0.4 (0.1-0.6); PLATELET COUNT 185 K/mm3 (130-400); RED BLOOD COUNT 3.49 M/mm3 (4.20-5.60); REDCELL DISTRIBUTION WIDTH-CV 13.6 % (11.5-14.5)
[2017-12-13] MEDS ORDERED: ZYPREXA10 MG PO (23:15)
[2017-12-13] MEDS ORDERED: HYDRALAZINE HC100 MG PO (23:18)
[2017-12-13] MEDS ORDERED: TYLENOL 500MG500 MG PO (23:24)
[2017-12-14] VITALS (9 sets, daily range): BP systolic 146–194; BP diastolic 52–101; PULSE 59–154; TEMP 97.2–98.4
[2017-12-14] MEDS ORDERED: DULCOLAX STOOL100 MG PO (00:19)
[2017-12-14] MEDS ORDERED: ZESTRIL40 MG PO (00:31)
[2017-12-14] MEDS ORDERED: GLUCOPHAGE500 MG/TAB PO ×2 (00:33→00:45)
[2017-12-14] MEDS ORDERED: MAGNESIUM200 MG PO (00:41)
[2017-12-14] MEDS ORDERED: GLUCOPHAGE1000 MG PO (00:47)
[2017-12-15 03:45] VITALS: BP 184/88; PULSE 74; TEMP 98.1
[2017-12-15 08:26] VITALS: BP 139/80; PULSE 74; TEMP 97.7
[2017-12-15 11:07] VITALS: BP 123/65; PULSE 73; TEMP 98.6
[2017-12-15] MEDS ORDERED: APRESOLINE 25MG25 MG PO (15:30)
[2017-12-15] MEDS ORDERED: SEROQUEL 2525 MG/TAB PO (15:32)
[2017-12-15 15:41] VITALS: BP 123/65; PULSE 73; TEMP 98.6
== END 2017-12-15 16:23 | disposition home or self-care (01) ==
LOC: COL.ER 19:01 → SURG 22:14
PROVIDERS: Emergency Medicine
DX: I69.893 Ataxia following other cerebrovascular disease (principal); I10 Essential (primary) hypertension; S09.90XA Unspecified injury of head, initial encounter; W19.XXXA Unspecified fall, initial encounter; E11.9 Type 2 diabetes mellitus without complications; M86.9 Osteomyelitis, unspecified; I48.91 Unspecified atrial fibrillation; N40.0 Benign prostatic hyperplasia without lower urinary tract symptoms; Z22.322 Carrier or suspected carrier of Methicillin resistant Staphylococcus aureus
CPT/HCPCS: G0378; G8978-GP; G8979-GP; J7030

== ENCOUNTER → 2018-04-16 | Outpatient (CLI) | payer BC, MEDICARE ==
[~2018-04-16] MED LIST changes: +DULCOLAX STOOL100 MG PO; +GLUCOPHAGE500 MG/TAB PO; +MAGNESIUM200 MG PO; +SEROQUEL 2525 MG/TAB PO; +ZYPREXA10 MG PO
== END ==
LOC: COL.RAD 07-09 14:30
DX: G91.9 Hydrocephalus, unspecified (principal); M85.80 Other specified disorders of bone density and structure, unspecified site; I51.7 Cardiomegaly; Z98.890 Other specified postprocedural states; Z95.2 Presence of prosthetic heart valve

== ENCOUNTER → 2018-04-22 | Outpatient (REF) | LOC: ZLAB.STJ 09:43 | DX: E61.2 Magnesium deficiency (principal) ==

== ENCOUNTER → 2018-05-24 | Outpatient (CLI) | payer BC, MEDICARE ==
[2018-05-24 12:17] LABS: ALBUMIN 3.2 gm/dL (3.5-5.0); BILIRUBIN,TOTAL 0.4 mg/dL (0.0-1.0); CALCIUM 9.2 mg/dL (8.4-10.2); CHOLESTEROL RISK RATIO 3.2; CREATININE, serum 1.16 mg/dL (0.66-1.25); POTASSIUM 3.6 mmol/L (3.4-5.0)
== END ==
LOC: ZLAB.STJ 10:30
PROVIDERS: Emergency Medicine
DX: I10 Essential (primary) hypertension (principal); N17.9 Acute kidney failure, unspecified

== ENCOUNTER → 2018-08-04 | Outpatient (CLI) | payer BC, MEDICARE ==
[2018-08-04 10:31] LABS: BASO % 0.3 % (0.0-2.0); EOS # 0.1 (0.0-0.7); EOS % 4.1 % (0-4.0); GRAN # 2.2 (1.4-6.5); GRAN % 68.5 % (42.2-75.2); HEMOGLOBIN 12.1 g/dl (13.5-18.0); LYMPH # 0.6 (1.2-3.4); LYMPH % 18.3 % (20.0-51.0); MEAN CELL VOLUME 90 fl (80.0-100.0); MEAN CORPUSCULAR HEMOGLOBIN 31 pg (27.0-31.0); MEAN CORPUSCULAR HGB CONC 34 g/dl (33.0-37.0); MEAN PLATELET VOLUME 12.4 fl (7.4-10.4); MONO # 0.3 (0.1-0.6); MONO % 8.5 % (1.7-9.3); PLATELET COUNT 135 K/mm3 (130-400); RED BLOOD COUNT 3.93 M/mm3 (4.20-5.60); REDCELL DISTRIBUTION WIDTH-CV 13.2 % (11.5-14.5)
[2018-08-04 10:32] LABS: ALBUMIN 2.7 gm/dL (3.5-5.0); BILIRUBIN,TOTAL 0.3 mg/dL (0.0-1.0); CALCIUM 8.7 mg/dL (8.4-10.2); CREATININE, serum 1.37 mg/dL (0.66-1.25); POTASSIUM 3.4 mmol/L (3.4-5.0); TOTAL PROTEIN 5.5 gm/dL (6.4-8.2)
[2018-08-04 10:48] LABS: HEMATOCRIT 35.5 % (42.0-52.0)
[2018-08-04 10:49] LABS: THYROXINE (T4)-TOTAL 6.6 ug/dL (5.5-11.0)
[2018-08-04 11:03] LABS: THYROID STIMULATING HORMONE 2.92 uIU/mL (0.465-4.680)
== END ==
LOC: ZLAB.STJ 09:45
PROVIDERS: Emergency Medicine
DX: I10 Essential (primary) hypertension (principal); M62.81 Muscle weakness (generalized); N17.9 Acute kidney failure, unspecified; I33.0 Acute and subacute infective endocarditis; R41.82 Altered mental status, unspecified

== ENCOUNTER → 2018-08-05 | Outpatient (CLI) | payer BC, MEDICARE | LOC: ZLAB.STJ 14:25 | DX: R79.1 Abnormal coagulation profile (principal) ==

== ENCOUNTER 2019-04-07 11:49 | Emergency (ER) | payer BC, MEDICARE ==
[~2019-04-07] VITALS: Ht 188 cm; Wt 118.2 kg
[2019-04-07 11:50] VITALS: TEMP 97.9
[2019-04-07 12:14] LABS: BASO % 0.3 % (0.0-2.0); EOS # 0.1 (0.0-0.7); EOS % 2.4 % (0-4.0); GRAN # 4.6 (1.4-6.5); GRAN % 77.1 % (42.2-75.2); HEMOGLOBIN 11.3 g/dl (13.5-18.0); LYMPH # 0.8 (1.2-3.4); LYMPH % 12.9 % (20.0-51.0); MEAN CELL VOLUME 93 fl (80.0-100.0); MEAN CORPUSCULAR HEMOGLOBIN 30 pg (27.0-31.0); MEAN CORPUSCULAR HGB CONC 33 g/dl (33.0-37.0); MEAN PLATELET VOLUME 11.1 fl (7.4-10.4); MONO # 0.4 (0.1-0.6); MONO % 6.8 % (1.7-9.3); PLATELET COUNT 181 K/mm3 (130-400); RED BLOOD COUNT 3.73 M/mm3 (4.20-5.60); REDCELL DISTRIBUTION WIDTH-CV 14.3 % (11.5-14.5)
[2019-04-07 12:19] LABS: HEMATOCRIT 34.6 % (42.0-52.0)
[2019-04-07 12:25] LABS: ALANINE AMINOTRANSFERASE 19 U/L (21-72); ALBUMIN 3.6 gm/dL (3.5-5.0); ALKALINE PHOSPHATASE 85 U/L (50-136); ANION GAP 7 mmol/L (7-16); AST,SGOT 21 U/L (15-37); BILIRUBIN,TOTAL 0.4 mg/dL (0.0-1.0); BLOOD UREA NITROGEN 31 mg/dL (9-20); C-REACTIVE PROTEIN 1.3 mg/dL (0.0-0.9); CARBON DIOXIDE 26 mmol/L (22-30); CHLORIDE 105 mmol/L (98-107); CREATININE, serum 1.76 (0.66-1.25); GLUCOSE 135 mg/dL (74-106); POTASSIUM 3.7 mmol/L (3.4-5.0); SODIUM 138 mmol/L (137-145); TOTAL PROTEIN 6.7 gm/dL (6.4-8.2)
[2019-04-07 12:33] LABS: LACTIC ACID 0.9 mmol/L (0.4-2.0)
[2019-04-07 12:34] LABS: TROPONIN-I < 0.012 ng/mL (0.000-0.035)
[2019-04-07 15:29] VITALS: BP 168/111; PULSE 82
== END 2019-04-07 15:28 | disposition home or self-care (01) ==
LOC: COL.ER 11:49
PROVIDERS: Emergency Medicine
DX: R40.4 Transient alteration of awareness (principal); I10 Essential (primary) hypertension; W19.XXXA Unspecified fall, initial encounter; Y92.129 Unspecified place in nursing home as the place of occurrence of the external cause

== ENCOUNTER 2019-04-17 13:50 | Emergency (ER) | payer BC, MEDICARE, MEDICAID ==
[~2019-04-17] VITALS: Ht 188 cm; Wt 102.3 kg
[2019-04-17 13:58] VITALS: TEMP 97.1
[2019-04-17] MEDS ORDERED: KLOR-CON 1010 MEQ PO (14:56)
[2019-04-17] MEDS ORDERED: BYDUREON PEN2 MG SQ (15:02)
[2019-04-17] MEDS ORDERED: GLUCOPHAGE500 MG/TAB PO (15:03)
[2019-04-17 15:21] LABS: BASO % 0.4 % (0.0-2.0); EOS # 0.1 (0.0-0.7); GRAN # 6.1 (1.4-6.5); GRAN % 85.5 % (42.2-75.2); HEMATOCRIT 38.7 % (42.0-52.0); HEMOGLOBIN 12.3 g/dl (13.5-18.0); LYMPH # 0.5 (1.2-3.4); LYMPH % 6.9 % (20.0-51.0); MEAN CELL VOLUME 94 fl (80.0-100.0); MEAN CORPUSCULAR HEMOGLOBIN 30 pg (27.0-31.0); MEAN CORPUSCULAR HGB CONC 32 g/dl (33.0-37.0); MEAN PLATELET VOLUME 11.3 fl (7.4-10.4); MONO # 0.3 (0.1-0.6); MONO % 4.8 % (1.7-9.3); PLATELET COUNT 183 K/mm3 (130-400); RED BLOOD COUNT 4.13 M/mm3 (4.20-5.60); REDCELL DISTRIBUTION WIDTH-CV 14.6 % (11.5-14.5)
[2019-04-17 15:29] LABS: ALBUMIN 4.1 gm/dL (3.5-5.0); BILIRUBIN,TOTAL 0.4 mg/dL (0.0-1.0); CALCIUM 9.6 mg/dL (8.4-10.2); CREATININE, serum 1.87 (0.66-1.25); POTASSIUM 3.6 mmol/L (3.4-5.0); TOTAL PROTEIN 7.6 gm/dL (6.4-8.2)
[2019-04-17 17:25] VITALS: BP 137/86; PULSE 99
== END 2019-04-17 17:25 | disposition home or self-care (01) ==
LOC: COL.ER 13:50
PROVIDERS: Family Medicine
DX: S20.211A Contusion of right front wall of thorax, initial encounter (principal); S79.911A Unspecified injury of right hip, initial encounter; I10 Essential (primary) hypertension; G40.909 Epilepsy, unspecified, not intractable, without status epilepticus; F03.90 Unspecified dementia, unspecified severity, without behavioral disturbance, psychotic disturbance, mood disturbance, and anxiety; W19.XXXA Unspecified fall, initial encounter; Y92.129 Unspecified place in nursing home as the place of occurrence of the external cause
CPT/HCPCS: Q9967

== ENCOUNTER → 2019-04-28 | Outpatient (CLI) | payer BC, MEDICARE, MEDICAID ==
[~2019-04-28] MED LIST changes: +BYDUREON PEN2 MG SQ
== END ==
LOC: ZLAB.STJ 14:46
DX: E11.59 Type 2 diabetes mellitus with other circulatory complications (principal)

== ENCOUNTER → 2019-05-09 | Outpatient (CLI) | payer BC, MEDICARE, MEDICAID ==
[2019-05-09 18:28] LABS: HEMATOCRIT 32.5 % (42.0-52.0); HEMOGLOBIN 10.6 g/dl (13.5-18.0)
[2019-05-09 18:41] LABS: ALBUMIN 3.3 gm/dL (3.5-5.0); BILIRUBIN,TOTAL 0.4 mg/dL (0.0-1.0); CALCIUM 8.6 mg/dL (8.4-10.2); CREATININE, serum 2.45 (0.66-1.25); POTASSIUM 3.7 mmol/L (3.4-5.0); TOTAL PROTEIN 6.5 gm/dL (6.4-8.2)
== END ==
LOC: COL.LAB 17:41
PROVIDERS: Emergency Medicine
DX: I10 Essential (primary) hypertension (principal)

== ENCOUNTER → 2019-05-16 | Outpatient (CLI) | payer BC, MEDICARE, MEDICAID ==
[2019-05-16 11:10] LABS: BASO % 0.4 % (0.0-2.0); EOS # 0.2 (0.0-0.7); EOS % 3.4 % (0-4.0); GRAN # 3.6 (1.4-6.5); GRAN % 76.7 % (42.2-75.2); LYMPH # 0.6 (1.2-3.4); LYMPH % 12.3 % (20.0-51.0); MEAN CELL VOLUME 93 fl (80.0-100.0); MEAN CORPUSCULAR HGB CONC 33 g/dl (33.0-37.0); MEAN PLATELET VOLUME 11.5 fl (7.4-10.4); MONO # 0.3 (0.1-0.6); MONO % 6.4 % (1.7-9.3); PLATELET COUNT 224 K/mm3 (130-400); RED BLOOD COUNT 3.18 M/mm3 (4.20-5.60); REDCELL DISTRIBUTION WIDTH-CV 14.2 % (11.5-14.5)
[2019-05-16 11:14] LABS: HEMATOCRIT 29.5 % (42.0-52.0); HEMOGLOBIN 9.6 g/dl (13.5-18.0); MEAN CORPUSCULAR HEMOGLOBIN 30 pg (27.0-31.0)
[2019-05-16 11:23] LABS: CALCIUM 8.9 mg/dL (8.4-10.2); CREATININE, serum 1.77 (0.66-1.25); POTASSIUM 3.9 mmol/L (3.4-5.0)
== END ==
LOC: ZLAB.STJ 10:29
PROVIDERS: Emergency Medicine
DX: E11.59 Type 2 diabetes mellitus with other circulatory complications (principal); N17.9 Acute kidney failure, unspecified

== ENCOUNTER → 2019-08-31 | Outpatient (CLI) | payer BC, MEDICARE, MEDICAID | LOC: ZLAB.STJ 15:08 | DX: A04.72 Enterocolitis due to Clostridium difficile, not specified as recurrent (principal) ==

== ENCOUNTER → 2020-07-02 | Outpatient (CLI) | payer BC, MEDICARE, MEDICAID ==
[2020-07-02 16:24] LABS: CHOLESTEROL RISK RATIO 4.1
== END ==
LOC: ZLAB.STJ 14:53
PROVIDERS: Emergency Medicine
DX: E78.5 Hyperlipidemia, unspecified (principal)

== ENCOUNTER → 2020-07-04 | Outpatient (CLI) | payer BC, MEDICARE, MEDICAID ==
[~2020-07-04] MED LIST changes: +CIPRO 500MG TA500 MG PO; +ZOFRAN 4MG T4 MG/TAB PO
[2020-07-04 18:17] LABS: COLLECTION METHOD CATHETER
[2020-07-04 18:48] LABS: MUCOUS Present /lpf; PH 5 (5-8); SQUAMOUS EPITHELIAL 0-2 /hpf; URINE APPEARANCE Hazy; URINE BACTERIA None Seen /hpf; URINE BILIRUBIN Negative (NEGATIVE); URINE BLOOD Negative (NEGATIVE); URINE COLOR Yellow; URINE GLUCOSE 1+ (NEGATIVE); URINE KETONE Negative (NEGATIVE); URINE LEUKOCYTE ESTERASE Negative (NEGATIVE); URINE NITRATE Negative (NEGATIVE); URINE PROTEIN(semi-quant) 2+ (NEGATIVE); URINE RBC 0-2 /hpf; URINE UROBILINOGEN Negative (NEGATIVE)
== END ==
LOC: ZLAB.STJ 14:04
PROVIDERS: Emergency Medicine
DX: N39.42 Incontinence without sensory awareness (principal)

== ENCOUNTER 2020-07-08 12:48 | Inpatient (IN) | payer BC, MEDICARE, MEDICAID ==
[2020-07-08] VITALS (7 sets, daily range): O2SAT 97–100
[~2020-07-08] VITALS: Ht 188 cm; Wt 96.7 kg
[~2020-07-08 12:48] MED LIST changes: -CIPRO 500MG TA500 MG PO; -ZOFRAN 4MG T4 MG/TAB PO
[2020-07-08 13:09] LABS: ARTERIAL BLD GAS O2 SATURATION 94.5 % (92-100); ARTERIAL BLD GAS TCO2 CT 17.7; ARTERIAL BLOOD GAS BASE EXCESS -5.9 (-2-2); ARTERIAL BLOOD GAS HCO3 16.9 meq/L (22-26); ARTERIAL BLOOD GAS PCO2 26.4 mmHg (35-45); ARTERIAL BLOOD GAS PO2 80.4 mmHg (80-100); ARTERIAL BLOOD GAS pH 7.43 (7.35-7.45)
[2020-07-08 13:24] LABS: HEMATOCRIT 38.9 % (42.0-52.0); HEMOGLOBIN 12.6 g/dl (13.5-18.0); MEAN CELL VOLUME 94 fl (80.0-100.0); MEAN CORPUSCULAR HEMOGLOBIN 30 pg (27.0-31.0); MEAN CORPUSCULAR HGB CONC 32 g/dl (33.0-37.0); PLATELET COUNT 233 K/mm3 (130-400); RED BLOOD COUNT 4.15 M/mm3 (4.20-5.60); REDCELL DISTRIBUTION WIDTH-CV 14.4 % (11.5-14.5)
[2020-07-08 13:26] LABS: INR 1.5 (0.8-3.0); PROTHROMBIN TIME 17.1 SECONDS (9.7-12.8)
[2020-07-08 13:31] LABS: ALBUMIN 3.5 gm/dL (3.5-5.0); BILIRUBIN,TOTAL 0.6 mg/dL (0.0-1.0); CALCIUM 9.3 mg/dL (8.4-10.2); CREATININE, serum 5.38 (0.66-1.25); POTASSIUM 5.7 mmol/L (3.4-5.0); TOTAL PROTEIN 7.3 gm/dL (6.4-8.2)
[2020-07-08 13:45] LABS: TROPONIN-I 0.127 ng/mL (0.000-0.035)
[2020-07-08 13:46] LABS: BAND 2 % (0-10); LYMPHOCYTE 6 % (20.0-51.0); NEUTROPHILS 91 % (42.0-75.2); PLATELET ESTIMATE NORMAL (NORMAL)
[2020-07-08 14:07] LABS: C-REACTIVE PROTEIN 29.3 mg/dL (0.0-0.9)
[2020-07-08 14:29] LABS: COLLECTION METHOD IN
[2020-07-08 14:38] LABS: BUDDING YEAST Present /hpf; MUCOUS Present /lpf; PH 5 (5-8); URINE APPEARANCE Cloudy; URINE BACTERIA None Seen /hpf; URINE BILIRUBIN Negative (NEGATIVE); URINE BLOOD Negative (NEGATIVE); URINE COLOR Amber; URINE GLUCOSE 1+ (NEGATIVE); URINE KETONE Negative (NEGATIVE); URINE LEUKOCYTE ESTERASE Negative (NEGATIVE); URINE NITRATE Negative (NEGATIVE); URINE PROTEIN(semi-quant) 2+ (NEGATIVE); URINE UROBILINOGEN Negative (NEGATIVE)
[2020-07-08 19:06] LABS: CALCIUM 8.9 mg/dL (8.4-10.2); CREATININE, serum 5.77 (0.66-1.25)
[2020-07-08 19:34] LABS: POTASSIUM 5.8 mmol/L (3.4-5.0); TROPONIN-I 3.7 ng/mL (0.000-0.035)
[2020-07-08] MEDS ORDERED: NORCO 325 MG-51 TAB PO ×2 (19:39)
[2020-07-08 22:28] LABS: COLLECTION METHOD IN
[2020-07-08 22:36] LABS: MUCOUS Present /lpf; PH 5 (5-8); SQUAMOUS EPITHELIAL 0-2 /hpf; URINE APPEARANCE Cloudy; URINE BACTERIA Rare /hpf; URINE BILIRUBIN Negative (NEGATIVE); URINE BLOOD Negative (NEGATIVE); URINE COLOR Amber; URINE GLUCOSE 1+ (NEGATIVE); URINE KETONE Negative (NEGATIVE); URINE LEUKOCYTE ESTERASE Negative (NEGATIVE); URINE NITRATE Negative (NEGATIVE); URINE PROTEIN(semi-quant) 2+ (NEGATIVE); URINE UROBILINOGEN Negative (NEGATIVE)
--- NOTE | 2020-07-08 23:20 | NUR ---
Arrived to the unit via stretcher; Patient not responding to verbal stimuli. Upper and lower extremities respond to painful stimuli. VS stable at this time. Tiffany continue to monitor.
[2020-07-09] VITALS (759 sets, daily range): BP systolic 102–152; BP diastolic 75–104; PULSE 70–100; TEMP 7.4; O2SAT 72–100
--- NOTE | 2020-07-09 00:30 | NUR ---
Hospitalist notified of latest critical troponin value.
[2020-07-09 00:42] LABS: LACTIC ACID 1.2 mmol/L (0.4-2.0)
--- NOTE | 2020-07-09 02:14 | NUR ---
Notified hospitalist of elevated D-dimer. Requested this nures to contact Theodora regarding this lab value.
--- NOTE | 2020-07-09 02:39 | NUR ---
Discussed with hospitalist regarding elevated D-dimer. Radha quesioning why he is not a canditate for anticoagulation at this time as brain bleed was in 2018. Hospitalist reported that Dr. Hoffman specifically requested heparin not be initiated. Dr. Morales ordered only rectal aspirin for the elevated troponin. Attempted to call back radha physician but she is busy on another call. Left message with the nurse. Awaiting a return call.
--- NOTE | 2020-07-09 02:53 | NUR ---
Discussed patient case with Dr. Amos, will hold off on initiating anti-coagulation at this time.
[2020-07-09] MEDS ORDERED: ZOFRAN 4MG T4 MG/TAB PO (03:05)
[2020-07-09] MEDS ORDERED: CIPRO 500MG TA500 MG PO (03:13)
[2020-07-09 07:19] LABS: HEMATOCRIT 34.6 % (42.0-52.0); HEMOGLOBIN 10.8 g/dl (13.5-18.0); MEAN CELL VOLUME 98 fl (80.0-100.0); MEAN CORPUSCULAR HEMOGLOBIN 31 pg (27.0-31.0); MEAN CORPUSCULAR HGB CONC 31 g/dl (33.0-37.0); MEAN PLATELET VOLUME 12.1 fl (7.4-10.4); PLATELET COUNT 208 K/mm3 (130-400); RED BLOOD COUNT 3.54 M/mm3 (4.20-5.60); REDCELL DISTRIBUTION WIDTH-CV 14.5 % (11.5-14.5)
[2020-07-09 07:30] LABS: ALBUMIN 2.9 gm/dL (3.5-5.0); BILIRUBIN,TOTAL 0.3 mg/dL (0.0-1.0); CALCIUM 8.4 mg/dL (8.4-10.2); CREATININE, serum 5.49 (0.66-1.25); MAGNESIUM 2.6 mg/dL (1.6-2.3); PHOSPHOROUS 7.7 mg/dL (2.5-4.5); POTASSIUM 5.4 mmol/L (3.4-5.0); TOTAL PROTEIN 6.1 gm/dL (6.4-8.2)
[2020-07-09 07:34] LABS: BAND 7 % (0-10); LYMPHOCYTE 6 % (20.0-51.0); NEUTROPHILS 85 % (42.0-75.2); PLATELET ESTIMATE NORMAL (NORMAL)
[2020-07-09 07:49] LABS: TROPONIN-I 9.24 ng/mL (0.000-0.035)
--- NOTE | 2020-07-09 11:05 | NUR ---
Chaplain lees for patient while standing outside the door.
--- NOTE | 2020-07-09 11:49 | NUR ---
I spoke with [facility]- Nj Vincent John by phone. He reports he is currently talking with his mother and his sister about his Dad's situation. He is aware that dialysis has been started already today. They are talking about how aggressive to be with their father's care but have not yet reached a decision. They are hoping to have an answer later today. I provided contact information, the purpose of my call, and goal to support them through this life-limiting situation. Son Nj is to call me back later today.
--- NOTE | 2020-07-09 13:27 | NUR ---
housekeeper/custodian/laundry worker contacted patient's son, Nj Lancaster, who is patient's durable power of trust and estates attorney for health care. Durable power of trust and estates attorney for health care is on the medical record. Nj states that patient resides in predatory animal exterminator care at [facility]. Nj spoke earlier with Ellie Ragsdale and is visiting with his family members regarding goals of care issues. Nj states his sister lives in [place] and he will be requesting that she begin her journey of returning home to see patient. Nj and social work associate discussed options for discharge if they choose comfort care. Nj requests assistance with determining visitation at [facility] the [facility]. Worker will obtain that information on inform Nj today.
[2020-07-09 14:15] LABS: INR 1.4 (0.8-3.0); PROTHROMBIN TIME 15.9 SECONDS (9.7-12.8)
--- NOTE | 2020-07-09 15:44 | NUR ---
toll testboard worker contacted patient's son/dpoa for health care and advised of pricing, visitation and accepting options at [facility] and the [facility]. Family will consider options and social work will follow and assist with discharge plan as it develops.
[2020-07-09 19:26] LABS: URINE PROTEIN:CREAT RATIO 0.21 (0.00-0.14)
--- NOTE | 2020-07-09 19:45 | NUR ---
Assessment complete; Patiet alert but not oriented and unable to communicate verbally per baseline. While attempting cares patient would push this nurses hands away and grab at IV tubing. Unable to perform cares or assessment without the assistance of a second staff member. Patient incontinent of a large loose BM. Assisted with [facility]. Mitts placed on patient due to confusion and resistance to cares and pulling at lines.
--- NOTE | 2020-07-09 21:30 | NUR ---
Updated son on patient status and care plan. Son stated it is normal for patient to be resistant to cares after an eipsode of illness in which he is hospitalized. All quesions and concerns addressed with the son at this time.
[2020-07-10] VITALS (232 sets, daily range): BP systolic 106–146; BP diastolic 68–95; PULSE 80–150; TEMP 96.4–97.3; O2SAT 65–100
[2020-07-10 10:58] LABS: HEPATITIS B SURFACE ANTIBODY <2.0 (()); HEPATITIS B SURFACE ANTIGEN Negative (Negative); HEPATITIS C VIRUS ANTIBODY Reactive (Negative)
[2020-07-10 10:59] LABS: INR 1.2 (0.8-3.0); PROTHROMBIN TIME 13.6 SECONDS (9.7-12.8)
[2020-07-10 12:16] LABS: HEMATOCRIT 33.1 % (42.0-52.0); HEMOGLOBIN 10.5 g/dl (13.5-18.0); MEAN CELL VOLUME 97 fl (80.0-100.0); MEAN CORPUSCULAR HEMOGLOBIN 31 pg (27.0-31.0); MEAN CORPUSCULAR HGB CONC 32 g/dl (33.0-37.0); PLATELET COUNT 225 K/mm3 (130-400); RED BLOOD COUNT 3.42 M/mm3 (4.20-5.60); REDCELL DISTRIBUTION WIDTH-CV 13.9 % (11.5-14.5)
[2020-07-10 13:26] LABS: BAND 2 % (0-10); HYPOCHROMIA 2+; LYMPHOCYTE 4 % (20.0-51.0); NEUTROPHILS 93 % (42.0-75.2); PLATELET ESTIMATE NORMAL (NORMAL)
[2020-07-10 13:27] LABS: ALBUMIN 2.9 gm/dL (3.5-5.0); BILIRUBIN,TOTAL 0.4 mg/dL (0.0-1.0); CALCIUM 8.5 mg/dL (8.4-10.2); CREATININE, serum 3.52 (0.66-1.25); MAGNESIUM 2.2 mg/dL (1.6-2.3); POTASSIUM 4.5 mmol/L (3.4-5.0); TOTAL PROTEIN 6.1 gm/dL (6.4-8.2)
--- NOTE | 2020-07-10 14:30 | NUR ---
DR. VACA HERE TO SEE THE PATIENT FOR CENTRAL LINE PLACEMENT.
--- NOTE | 2020-07-10 14:46 | NUR ---
darkroom worker contacted patient's son, Nj. Nj stated that his sister is enroute from [place] and will arrive tomorrow night or Wednesday morning. Nj will speak with Dr Haley. Case management continues to follow to assist with discharge planning after family decides if they wish to continue care or desire comfort measures. Nj stated they have decided to make patient a DNR/DNI. Worker spoke with patient nurse and advised of the above information.
--- NOTE | 2020-07-10 16:14 | NUR ---
I called son Nj to talk about their discussion with family and goals of care. He seemed surprised that I did not know that they had requested DNR/DNI status for their father during a conversation with Valerie Haque today. They still wish to be aggressive in their father's care at this point otherwise. Daughter is coming from [place] in the next day or so and they are feeling like their dad has made small steps of progress and want to support this. Dr Haley was calling the son at the end of our conversation and I did verify with Alecia Rich RN that Dr Haley was made aware of this request and would write the orders. I will follow up with the family tomorrow.
--- NOTE | 2020-07-10 19:45 | NUR ---
Assessment complete; VS stable. Patient is alert. Occasionally will respond to questions verbally. Responses are brief and are sometimes appropriate and other times will be random and non make sense for the situation. Sqeezed this nurses hands on command. Right hand noted to be slightly weaker than the left. Able to swallow whole pills individually without difficulty. Will continue to monitor; call light left within reach.
--- NOTE | 2020-07-10 21:26 | NUR ---
Updated son on patient status; all questions and concerns addressed at this time.
[2020-07-11] VITALS (216 sets, daily range): BP systolic 117–130; BP diastolic 77–98; PULSE 60–97; TEMP 96.4–97.6; O2SAT 81–100
[2020-07-11 04:56] LABS: HEMOGLOBIN 10.1 g/dl (13.5-18.0); MEAN CORPUSCULAR HEMOGLOBIN 30 pg (27.0-31.0); MEAN CORPUSCULAR HGB CONC 32 g/dl (33.0-37.0); MEAN PLATELET VOLUME 11.6 fl (7.4-10.4); PLATELET COUNT 229 K/mm3 (130-400); RED BLOOD COUNT 3.39 M/mm3 (4.20-5.60); REDCELL DISTRIBUTION WIDTH-CV 13.3 % (11.5-14.5)
[2020-07-11 04:58] LABS: HEMATOCRIT 31.3 % (42.0-52.0)
[2020-07-11 04:59] LABS: MEAN CELL VOLUME 92 fl (80.0-100.0)
[2020-07-11 05:02] LABS: CALCIUM 8.3 mg/dL (8.4-10.2); CREATININE, serum 2.48 (0.66-1.25); POTASSIUM 4.3 mmol/L (3.4-5.0)
[2020-07-11 05:21] LABS: HYPOCHROMIA 1+; LYMPHOCYTE 2 % (20.0-51.0); NEUTROPHILS 95 % (42.0-75.2); PLATELET ESTIMATE NORMAL (NORMAL)
[2020-07-11 05:22] LABS: OVALOCYTES 1+; POIKILOCYTOSIS 1+
--- NOTE | 2020-07-11 13:30 | NUR ---
draw off worker spoke with son, Nj, and confirmed that patient's and children wish to pursue treatment at this time. Nj verbalizes understanding that patient will return to [facility] when stable and that family will not be able to visit patient due to Covid 19 visiting restrictions. Nj verbalizes that family is happy patient is progressing. Nj did confirm that patient is a DNR/DNI at this time. Worker collaborated the above information to patient's nurse and Dr Churchill's nurse, Marti.
--- NOTE | 2020-07-11 13:34 | NUR ---
textile worker provided clinical information to [facility]. They will accept patient back upon discharge, to their Covid Unit. Worker advised that son stated patient's daughter has postponed her trip to [place] as patient has been improving.
[2020-07-11 18:45] LABS: ALBUMIN 2.8 gm/dL (3.5-5.0); CALCIUM 8.4 mg/dL (8.4-10.2); PHOSPHOROUS 4.3 mg/dL (2.5-4.5); POTASSIUM 4.3 mmol/L (3.4-5.0)
[2020-07-11 18:47] LABS: CREATININE, serum 2.65 (0.66-1.25)
--- NOTE | 2020-07-11 19:09 | NUR ---
Report given to ALICIA Alonso.
--- NOTE | 2020-07-11 21:30 | NUR ---
Patient napping in bed; arouses easily with verbal stimuli. Aphasic per baseline. VS stable at this time. Will continue to monitor.
[2020-07-12] VITALS (181 sets, daily range): BP systolic 118–138; BP diastolic 75–86; PULSE 72–88; TEMP 96.5–98.1; O2SAT 89–100
--- NOTE | 2020-07-12 04:50 | NUR ---
Assisted with repositioning. No concerns at this time. Call light left within reach.
--- NOTE | 2020-07-12 06:50 | NUR ---
Patient transfered from unit to the medical floor. Patient stable upon transfer.
[2020-07-12 07:44] LABS: HEMOGLOBIN 10.2 g/dl (13.5-18.0); MEAN CELL VOLUME 93 fl (80.0-100.0); MEAN CORPUSCULAR HEMOGLOBIN 30 pg (27.0-31.0); MEAN CORPUSCULAR HGB CONC 33 g/dl (33.0-37.0); MEAN PLATELET VOLUME 11.9 fl (7.4-10.4); PLATELET COUNT 216 K/mm3 (130-400); RED BLOOD COUNT 3.37 M/mm3 (4.20-5.60); REDCELL DISTRIBUTION WIDTH-CV 13.2 % (11.5-14.5)
[2020-07-12 07:47] LABS: HEMATOCRIT 31.4 % (42.0-52.0)
[2020-07-12 07:52] LABS: CALCIUM 8.6 mg/dL (8.4-10.2); CREATININE, serum 2.49 (0.66-1.25); POTASSIUM 3.9 mmol/L (3.4-5.0)
[2020-07-12 08:38] LABS: BAND 6 % (0-10); EOSINOPHIL 1 % (0-4); LYMPHOCYTE 5 % (20.0-51.0); NEUTROPHILS 85 % (42.0-75.2); PLATELET ESTIMATE NORMAL (NORMAL)
--- NOTE | 2020-07-12 08:40 | NUR ---
Lying in bed with eyes closed. Opens eyes when name called out. Patient able to keep eyes open, does not answer questions when asked. Will squeeze your hands but does not move arms or legs when asked. No signs or symptoms of discomfort noted. Patient is on oxygen at 2L/NC, no shortness of air. Buchanan to dependent drainage with clear yellow urine. Dialysis catheter to right upper chest with dressing CDI. Triple lumen left IJ with dressing intact, minimal drainage noted under dressing. Patient does not answer when asked if anything further is needed.
--- NOTE | 2020-07-12 10:27 | NUR ---
Family has reported to social insurance administrator that they are no longer interested in comfort/palliative care. I will no longer follow.
--- NOTE | 2020-07-12 12:13 | NUR ---
Patient wakes up. Able to take pills whole for this nurse without any difficulty. Continues to be nonverbal, does not move extremities.
--- NOTE | 2020-07-12 14:28 | NUR ---
Patient repositioned to supine position in the bed. HOB elevated some. Oxygen at 2L/NC. No signs or symptoms of discomfort noted. Continues to be nonverbal.
--- NOTE | 2020-07-12 19:50 | NUR ---
Patient assessed at this time. Alert, non-verbal and unable to answer questions. No s/sx of pain or discomfort such as facial grimacing, moaning, and gaurding. Peripheral INT to right forearm. Triple lumen central line to left IJ. Dressing CDI. On oxygen at 2 L/min via NC, with SPO2 88%. Increased oxygen to 3 L/min via NC, and increased to 92%. LS CTA in upper lobes, diminished in lower. Respirations even and unlabored. HRI. Telemetry in place: A-fib. Capillary refill less than 3 seconds. Non-tenting skin turgor. BSAx4. Patient incontinent of bowel and changed. Indwelling storm catheter patent, and draining clear yellow urine via dependent drainage. Catheter care provided. No edema. SCDs on. HD catheter to right IJ. Dressing CDI. Redness to bottom. Son called and updated on patient. Patient resting in bed with call light within reach. High fall risk precautions in place.
--- NOTE | 2020-07-13 01:34 | NUR ---
Patient's oxygen level was 87% on oxygen at 3 L/min via NC. Increased to 5 L/min via NC, and increased to 92%. Call placed to RT and OLGA Rg for update. New order for ABG. Notified RT.
[2020-07-13 01:53] LABS: ARTERIAL BLD GAS O2 SATURATION 91.2 % (92-100); ARTERIAL BLD GAS TCO2 CT 19.7; ARTERIAL BLOOD GAS BASE EXCESS -4.4 (-2-2); ARTERIAL BLOOD GAS HCO3 18.8 meq/L (22-26); ARTERIAL BLOOD GAS PCO2 28.7 mmHg (35-45); ARTERIAL BLOOD GAS PO2 63.2 mmHg (80-100); ARTERIAL BLOOD GAS pH 7.43 (7.35-7.45)
--- NOTE | 2020-07-13 02:34 | NUR ---
ABG results back. RT spoke with Ifrah. Increased oxygen to 6 L/min via NC.
[2020-07-13 03:57] VITALS: BP 150/90; PULSE 79; TEMP 98.2
--- NOTE | 2020-07-13 05:25 | NUR ---
Patient has been resting in bed. Is more alert and nodding head yes and no. Has tried to say a few words tonight, but seems to be in Latvian. Son had reported that this is not unusual for patient when given update at beginning of shift. Labs drawn from triple lumen left IJ per protocol. HD catheter remains to right IJ. After speaking with Flying Squad Worker, it was decided to not pull until later today and to see if Dr. Churchill will take it out rather than nursing staff. Continues on oxygen at 6 L/min via NC. Respirations continue to be even and unlabored. Patient has had diarrhea several times this shift. Staff providing perineal hygience care and changing. Indwelling storm catheter continues to have clear yellow urine. High fall risk precautions in place. Resting in bed with call light within reach.
[2020-07-13 07:08] LABS: HEMOGLOBIN 10.1 g/dl (13.5-18.0); MEAN CELL VOLUME 92 fl (80.0-100.0); MEAN CORPUSCULAR HEMOGLOBIN 31 pg (27.0-31.0); MEAN CORPUSCULAR HGB CONC 34 g/dl (33.0-37.0); MEAN PLATELET VOLUME 11.9 fl (7.4-10.4); PLATELET COUNT 229 K/mm3 (130-400); RED BLOOD COUNT 3.27 M/mm3 (4.20-5.60); REDCELL DISTRIBUTION WIDTH-CV 13.2 % (11.5-14.5)
[2020-07-13 07:15] LABS: HEMATOCRIT 30.1 % (42.0-52.0)
[2020-07-13 07:21] LABS: ALBUMIN 2.7 gm/dL (3.5-5.0); CALCIUM 8.5 mg/dL (8.4-10.2); CREATININE, serum 2.36 (0.66-1.25); PHOSPHOROUS 3.5 mg/dL (2.5-4.5)
[2020-07-13 08:17] VITALS: BP 132/92; PULSE 80; TEMP 97.6
[2020-07-13 08:36] LABS: BAND 2 % (0-10); NEUTROPHILS 92 % (42.0-75.2); PLATELET ESTIMATE NORMAL (NORMAL)
[2020-07-13 08:59] LABS: LYMPHOCYTE 4 % (20.0-51.0)
--- NOTE | 2020-07-13 09:34 | NUR ---
Patient laying in bed, TV on. Alert to name, but does not repsond. VSS. IV CDI. Nurse asked patient questions, patient no repsonse, just stares at the nurse. Patient assisted with eating breakfast and pills and tolerated well. Call light within reach. Bed alarm on
[2020-07-13 11:56] VITALS: BP 114/86; PULSE 70; TEMP 97.5
--- NOTE | 2020-07-13 12:15 | NUR ---
Dialysis catheter to RT IJ removed by the nurse and 15 minutes pressure held. Covered with gauze and tegaderm. Sutures removed with sterile procedure. Tip intact, patient tolerated well. Site CDI. Will continue to monitor. Call light within reach
--- NOTE | 2020-07-13 13:02 | NUR ---
CODY (Sheila) received a call from Herman at [facility] who had heard a rumor that patient was being discharged home to hospice house. Patient lives at [facility]. CODY spoke with patient's RN Pat and hospitalist Dr. Bedolla. This patient is not being discharged and there are no orders currently for hospice. CODY relayed findings to [facility]. Social work will continue to follow.
[2020-07-13 15:56] VITALS: BP 126/83; PULSE 83; TEMP 97.6
--- NOTE | 2020-07-13 16:55 | NUR ---
Patient had an uneventful day. Slpet off and on throughout the shift. Nurse assisted with a zoom meeting with the family, patient not very responsive, just stared at family. Alert and non responsive to questions. VSS. IV CDI. Buchanan clear yellow urine. SCD's bilateral legs. Patient assisted with meals. Call light within reach. Bed alarm on
[2020-07-13 20:00] VITALS: BP 174/93; PULSE 102; TEMP 97.4
[2020-07-13 22:12] VITALS: BP 140/90
[2020-07-14 03:11] VITALS: BP 155/75; PULSE 76; TEMP 97.5
--- NOTE | 2020-07-14 04:44 | NUR ---
PRN CARDIZEM ADMINISTERED AT 0126 DUE TO INCREASED HEART RATE. TELE MONITOR REPORTED HEART RATE WAS IN THE 120-130'S. PATIENT CALM THROUGHOUT THE NIGHT. NEVER SPOKE TO THIS NURSE BUT DID SHAKE HIS HEAD YES TO A COUPLE DIFFERENT QUESTIONS.
--- NOTE | 2020-07-14 07:35 | NUR ---
PT HAS OXYGEN ON IN ROOM, ASKED PT IF HE WAS IN PAIN AND HE NODDED YES, WILL BRING IN PAIN MEDS WITH MORNING PILLS. PT STARTED REACHING FOR OXYMASK WHEN LEAVING, TOLD HIM TO KEEP IT ON, PT MOVED HAND AWAY FROM MASK.
[2020-07-14 08:09] LABS: HEMOGLOBIN 10.4 g/dl (13.5-18.0); MEAN CELL VOLUME 92 fl (80.0-100.0); MEAN CORPUSCULAR HEMOGLOBIN 31 pg (27.0-31.0); MEAN CORPUSCULAR HGB CONC 33 g/dl (33.0-37.0); MEAN PLATELET VOLUME 11.7 fl (7.4-10.4); PLATELET COUNT 247 K/mm3 (130-400); REDCELL DISTRIBUTION WIDTH-CV 13.2 % (11.5-14.5)
[2020-07-14 08:18] LABS: HEMATOCRIT 31.3 % (42.0-52.0)
[2020-07-14 08:22] LABS: CALCIUM 8.6 mg/dL (8.4-10.2); CREATININE, serum 2.1 (0.66-1.25)
[2020-07-14 08:28] VITALS: BP 171/92; PULSE 107; TEMP 98.3
[2020-07-14 08:46] LABS: BAND 3 % (0-10); EOSINOPHIL 1 % (0-4); LYMPHOCYTE 24 % (20.0-51.0); NEUTROPHILS 49 % (42.0-75.2); PLATELET ESTIMATE NORMAL (NORMAL)
--- NOTE | 2020-07-14 09:00 | NUR ---
ASKED PT IF IN PAIN, NODDED YES, ASKED IF HE COULD TELL ME WEAR AND HIS RESPONSE WAS UNINTELLIGABLE. PT WOULD ANSWER YEAH TO SOME QUESTIONS OTHER TIMES HE WOULD STARE AT ME. PT GRIPPED FINGERS, R PATIENT SUPPORT ASSOCIATE SLIGHTLY WEAKER, PT WOULD NOT OBEY COMMANDS TO RAISE ARMS OR MOVE LEGS BUT HE PICKED UP WATER FROM BEDSIDE TABLE. PT TAKES OFF OXYGEN, BABY MONITOR IN ROOM TO MONITOR THIS. PT ATE MAJORITY OF BREAKFAST, NO OTHER NEEDS AT THIS TIME.
--- NOTE | 2020-07-14 10:37 | NUR ---
UPDATED PT FAMILY, FAMILY WANTS TO ZOOM AT 1500
[2020-07-14 12:57] VITALS: BP 148/81; PULSE 70; TEMP 97.4
--- NOTE | 2020-07-14 16:11 | NUR ---
ON CAMERA PT TOOK OXYMASK OFF, PT PREVIOUSLY UNINTERESTED IN MEAL AND WOULD NOT ALLOW ME TO FEED HIM. PT NOW HUNGRY AND ATTEMPTING TO EAT WITH HIS HANDS. FED PT AND HE ATE 50%, PT ALSO DRANK GLUCERNA SHAKE. PT REPOSITIONED IN BED, APPEARS CONTENT NOW WITH OXYGEN ON.
[2020-07-14 16:29] VITALS: BP 152/88; PULSE 86; TEMP 97.1
--- NOTE | 2020-07-14 17:27 | NUR ---
aiden zoom call with pt family. pt not vocal but used his hand for an "i love you" symbol in sign language. pt reaching for dinner that he wants and assistance is provided. pt eating pudding and drinking tea at this time. insulin given. no other needs.
[2020-07-14 20:34] VITALS: BP 162/99; PULSE 99; TEMP 97.3
[2020-07-15] VITALS (7 sets, daily range): BP systolic 141–173; BP diastolic 80–106; PULSE 73–92; TEMP 97.3–98.7
--- NOTE | 2020-07-15 07:20 | NUR ---
PT IS CURRENTLY LAYING IN BED AWAKE. RT WAS AT BEDSIDE DURING SHIFT REPORT, AND PT WAS TITRATED DOWN TO 6L NC. NO FURTHER CONCERNS AT THIS TIME.
--- NOTE | 2020-07-15 10:24 | NUR ---
PT WAS DESATTING UPON ENTRY TO THE ROOM. 83% ON 6L HFNC. TITRATED PT UP TO 8L, PT WAS REMAINING AT 85%, DR. SOTO WAS AT BEDSIDE AND TITRATED PT UP TO 10L, PT'S SATURATIONS INCREASED TO 86%. THIS RN TITRATED UP TO 12L AND PT STABLIZED AT 89-90% ON THOSE 12L. CONTACTED RT, WHO WILL ALSO ASSESS PATIENT SHORTLY. WILL CONTINUE TO MONITOR. NO FURTHER CONCERNS.
--- NOTE | 2020-07-15 15:12 | NUR ---
CODY contacted and faxed updates to Herman at [facility].
[2020-07-15 17:15] LABS: ARTERIAL BLD GAS O2 SATURATION 95.4 % (92-100); ARTERIAL BLD GAS TCO2 CT 21.2; ARTERIAL BLOOD GAS BASE EXCESS -2.8 (-2-2); ARTERIAL BLOOD GAS HCO3 20.2 meq/L (22-26); ARTERIAL BLOOD GAS PCO2 29.8 mmHg (35-45); ARTERIAL BLOOD GAS PO2 80.5 mmHg (80-100); ARTERIAL BLOOD GAS pH 7.45 (7.35-7.45)
--- NOTE | 2020-07-15 20:15 | NUR ---
Initial shift assessment done- pt alert, eyes open, follows with eyes, non verbal, does not follow commands, o2 at 12L/high flow--sats 91%, repositioned, Tele on- afib, rate 100/min, Buchanan with clear yellow urine- SCD,s on.
[2020-07-16 00:24] VITALS: BP 158/92; PULSE 105; TEMP 99
[2020-07-16 04:42] VITALS: BP 133/80; PULSE 92; TEMP 99.3
--- NOTE | 2020-07-16 05:37 | NUR ---
Did rest some during the night- VSS, o2 remains at 12L/high flow, sats 93%,, did put mitts on patient during the night to prevent him from taking off the oxygen-- did find pt with o2 off at start of shift and sats were 80%--did come up within minutes to low 90,s after o2 put back on. Had 1200cc of hetal urine out of [place] this shift. Tele on- afib,, did have heart rate around 110-120 at around 0130 this am-- did give the prn cardizem as ordered, now heart rate 82/min. Patient was able to zoom video with family around 9 pm last night-nurse assisting with tablet for about 20 minutes while family was able to talk with him. Triple lumen to left neck with dressing changed this morning per protocol.
[2020-07-16 07:12] LABS: HEMOGLOBIN 10.8 g/dl (13.5-18.0); MEAN CELL VOLUME 89 fl (80.0-100.0); MEAN CORPUSCULAR HEMOGLOBIN 30 pg (27.0-31.0); MEAN CORPUSCULAR HGB CONC 33 g/dl (33.0-37.0); MEAN PLATELET VOLUME 11.6 fl (7.4-10.4); PLATELET COUNT 279 K/mm3 (130-400); RED BLOOD COUNT 3.65 M/mm3 (4.20-5.60); REDCELL DISTRIBUTION WIDTH-CV 13.4 % (11.5-14.5)
--- NOTE | 2020-07-16 07:21 | NUR ---
pt sleeping with oxygen in nose.
[2020-07-16 07:25] LABS: ALBUMIN 2.8 gm/dL (3.5-5.0); BILIRUBIN,TOTAL 0.4 mg/dL (0.0-1.0); CALCIUM 8.8 mg/dL (8.4-10.2); CREATININE, serum 1.94 (0.66-1.25); POTASSIUM 3.8 mmol/L (3.4-5.0); TOTAL PROTEIN 6.2 gm/dL (6.4-8.2)
[2020-07-16 07:52] LABS: HEMATOCRIT 32.6 % (42.0-52.0)
[2020-07-16 07:54] VITALS: BP 142/65; PULSE 53; TEMP 97.9
--- NOTE | 2020-07-16 09:20 | NUR ---
PT SATTING 85% ON 14L, PT ON 15L HIGH FLOW NASAL CANNULA SATTING 91%
[2020-07-16 09:25] LABS: BAND 3 % (0-10); EOSINOPHIL 1 % (0-4); LYMPHOCYTE 3 % (20.0-51.0); NEUTROPHILS 93 % (42.0-75.2); NUCLEATED RED BLOOD CELL 1 (0-6); PLATELET ESTIMATE NORMAL (NORMAL)
--- NOTE | 2020-07-16 09:51 | NUR ---
PATIENT IS CALM NOT VERBALISING,ON O2 THERAPY HIGH FLOW NC SATTING AT 85% ON 14L OXYGEN WAS INCREASED TO 16L NOW SATTING AT 91%.PATIENT ASSESSMENT WAS DONE,DUE MEDICATION ADMINISTERED,UNABLE TO EAT BREAKFAST.NO NEEDS AT THIS TIME.
--- NOTE | 2020-07-16 10:48 | NUR ---
GAVE REPORT TO ALICIA URBINA AT [facility]
[2020-07-16 13:23] VITALS: BP 132/94; PULSE 89; TEMP 99
--- NOTE | 2020-07-16 14:34 | NUR ---
The patient remains on 12 liters of oxygen, via high flow cannula. CODY contacted and faxed updates to Herman at [facility].
--- NOTE | 2020-07-16 15:14 | NUR ---
UPDATED PATIENT'S SON LESTER ABOUT THE PATIENT.THE SON WOULD LIKE TO HAVE A ZOOM MEETING WITH THE PATIENT AND FAMILY AT 2100
[2020-07-16 17:35] VITALS: BP 141/77; PULSE 75; TEMP 98
--- NOTE | 2020-07-16 17:54 | NUR ---
PATIENT REMAINS CALM ON HIGH FLOW O2 THERAPY AT 16L.HE IS SLEEPY,PERICARE AND TURNING DONE.DUE MEDS GIVEN.NO NEEDS AT THIS TIME.
--- NOTE | 2020-07-16 20:15 | NUR ---
Patient assessed at this time. Alert, oriented to person only. Very tired, only woke up to tactile stimuli. Not responding verbally at all, which is not new for patient. No outward s/sx of pain or discomfort noted, such as facial grimacing, moanin, and gaurding. Triple lumen central line to left IJ. Each lumen flushed. Dressing CDI. Respirations even and unlabored. LS CTA in upper lobes, diminished in lower. On oxygen at 12 L/min via NC. HRI. Telemetry in place: A-fib. Capillary refill less than 3 seconds. Non-tenting skin turgor. BSAx4. Abdomen soft and non-tender. No edema. Indwelling storm catheter patent, and draining cloudy yellow urine via dependent drainage. Redness to coccyx, blanchable. Repositioned every two hours. Dressing to right IJ where HD catheter was removed is CDI. Resting in bed with call light within reach. High fall risk precautions in place.
[2020-07-16 20:24] VITALS: BP 130/80; PULSE 67; TEMP 98.5
--- NOTE | 2020-07-16 22:52 | NUR ---
Patient not waking up enough to drink or eat anything. Did not give HS medications due to this.
[2020-07-17] VITALS (7 sets, daily range): BP systolic 130–170; BP diastolic 77–110; PULSE 66–126; TEMP 96.8–98.5
--- NOTE | 2020-07-17 05:25 | NUR ---
Patient has been resting in bed with call light within reach. High fall risk precautions remain in place. Continues on oxygen at 12 L/min via NC. Staff assists with repositioning in bed.
--- NOTE | 2020-07-17 09:49 | NUR ---
PATIENT IS NONVERBAL,UNABLE TO TAKE MEDS,ASSESSMENT DONE,NO NEEDS IDENTIFIED AT THIS TIME
--- NOTE | 2020-07-17 11:45 | NUR ---
Nabila Pantoja, social work, and I spoke with son,Nj, by phone. He reports that they have just spoken with their insurance company who said they would work with them to get Vincent home on hospice. We did talk about hospice services available, that care would fall to family to provide with support from hospice, medical equipment would be available based on need. Family declined home hospice when they realized that they would be providing personal care and that the length of time their father would live with them would be hard to predict. They then asked about [facility] and [facility]. I contacted Kelsy at [facility] to inquire about possible admission there. They will review his records which I have sent and will get back with us. Nabila spoke with Herman CHRISTY who will call family to discuss visitation there at end of life. Family realizes that we have done all we can do for their father but still when I asked today about comfort care--they are not yet ready per son.
--- NOTE | 2020-07-17 11:54 | NUR ---
The hospitalist notified CODY that the patient is not improving and appears to be getting worse. He is requiring 12 liters of oxygen and his oral intake is poor. The hospitalist would like to address goals of care with the patient's family again. CODY collaborated with Palliative Care Nurse, Franchesca, and contacted the patient's son, Nj. Franchesca provided Nj with an update on the patient's status. Nj reports that they are thinking about doing hospice in the home. Franchesca explained to him how hospice in the home works and looks like. Nj reports that him and his family would not be able to change the patient, when he goes to the bathroom. Nj reports that hospice in the home would not work for them then. Franchesca discussed the options of [facility] and hospice at [facility]. Nj reports that he would be interested in the [facility] and possibly hospice at [facility], but he needs to know what visitation would look like at both facilities. Nj reports that he is also not ready to pursue comfort measures yet. He would like to discuss the above options with the rest of his family and know the visitation rules. CODY contacted Herman at [facility] and requested that he contact Nj. Herman contacted CODY back after he spoke to Nj and reports that he updated them on what the visitation is with end of life care. Franchesca contacted and faxed a referral to [facility]. Awaiting screen.
--- NOTE | 2020-07-17 14:27 | NUR ---
Kelsy at [facility] does advise that they will typically wait 14 days after onset of covid before considering the patient able to come out of isolation. Pt was diagnosed on 07/05 per H&P, with initial test being done on 07/04 per Fili Kaplan,infection control nurse. We will chack with Dr Quiñones about how long pt should remain in isolation when he calls today. I called Nj Lancaster to relay this information. He is still hoping for [facility] but reports that after talking with Herman at [facility], they feel that they would be able to visit Vincent at [facility]. We will wait and see how the situation is viewed by [facility] on 07/19.
--- NOTE | 2020-07-17 15:41 | NUR ---
Franchesca, Palliative Care Nurse, updated SW about [facility]. The [facility] will normally wait until 14 days after onset of COVID symptoms, before they will consider taking a patient. Becka, infection control nurse, is checking with ID on how long the patient needs to remain in isolation. Kelsy, at [facility], reports that they earliest they would consider the patient is on 07/19. They would want to review updates first, before they would consider accepting the patient or not. The patient's son, Nj, was updated on this. CODY followed up with Nj. Nj is considering [facility] for hospice, but he would like to see what the [facility] says on 07/19. He would also like to arrange a video chat with the patient tyler at 9:00 PM. SW to inform the patient's RN.
--- NOTE | 2020-07-17 16:02 | NUR ---
Dr Quiñones has advised us that due to the severity of Vincent's covid infection, he should remain in isolation for a full 20 days. This information has been passed on to Kelsy at [facility].
--- NOTE | 2020-07-17 16:40 | NUR ---
NINA RN INFORMED ME PT THAT TELE HAD BEEN CALLING ABOUT PT INC HR IN 140'S. PT FLUCTUATING BETWEEN 90-130'S IN AFIB AT THIS TIME. NOTIFIED DR. DONOVAN ABOUT INC HR, ORDER FOR 5MG METOPROLOL IV VERBALLY GIVEN, MEDICATION ADMINISITERED. PT BP ELEVATED, DR. DONOVAN NOTIFIED. DR. DONOVAN NOTIFIED ME THAT PT WAS TO BE PLACED ON COMFORT CARE BUT MAINTAIN OXYGEN AT 12L SO HE COULD TRANSFER TO [facility] T[facility]ROW. TELE REMOVED PER VERBAL ORDER. PT REFUSING DINNER AT THIS TIME AND DID NOT REQUIRE INSULIN. FAMILY TO VISIT SOMETIME DURING EVENING PER DR. DONOVAN.
--- NOTE | 2020-07-17 18:00 | NUR ---
PATIENT IS CALM,O2 THERAPY CONTINUED,PERICARE DONE.EATING NOW.NO OTHER NEEDS IDENTIFIED AT THIS TIME.
--- NOTE | 2020-07-17 19:35 | NUR ---
Patient assessed at this time. Patient lethargic. Does open eyes with tactile stimuli. No s/sx of pain or discomfort noted, such as moaning and facial grimacing. Triple lumen central line to left IJ. Respirations even and unlabored. On oxygen at 12 L/min via high flow nasal canula. LS CTA in upper lobes, diminished in lower. HRI. Capillary refill less than 3 seconds. Non-tenting skin turgor. BSAx4. Abdomen soft. Indwelling storm catheter patent, and draining clear yellow urine via dependent drainage. 1+ edema BLE. Redness to bottom. Repositioned in bed. Catheter care provided. Resting in bed with call light within reach.
--- NOTE | 2020-07-17 23:22 | NUR ---
Patient's family had come to see patient. Patient did wake up and was responsive. Following some comands, such as squeeze hands, lift arm, etc. Patient drank approximately 1000 mls of ice water. Not verbally responding. Attempted to give medication with help of family, but patient spit medication out. Patient states that they do not know if they want him to be on comfort care due to responsiveness, but also understand that he is refusing to take oral medications. Son stated that MD is supposed to call him tomorrow and discuss what the family wants and will go from there. Son and voices no questions, needs, or concerns at this time.
[2020-07-18] VITALS (7 sets, daily range): BP systolic 138–154; BP diastolic 80–95; PULSE 55–102; TEMP 97.3–99
--- NOTE | 2020-07-18 05:29 | NUR ---
Patient has been awake on and off this shift. Does not seem to be as lethargic/drosy as he the previous night for at beginning of shift prior to family visiting. Patient will slightly nod his head yes and no when asked questions at times, other times he will just stare at staff. Continues on oxygen at 12 L/min via NC. Indwelling storm catheter patent, and draining clear yellow drainage via dependent drainage. Labs obtained from triple lumen central line per protocol. Resting in bed with call light within reach.
--- NOTE | 2020-07-18 07:19 | NUR ---
REPORT RCVD FROM ALICIA SIFUENTES. PT HAS BEEN AWAKE SINCE FAMILY VISITED LAST NIGHT. PT IS STILL AWAKE AND LOOKING AROUND. HE DOES NOT RESPOND APPROPRIATELY TO QUESTIONS ASKED. HIS MOVEMENT IS SPORADIC, AND NOT PURPOSEFUL. HE REFUSES TO TAKE PO MEDICATIONS, AND SPITS THEM BACK OUT. WILL TALK TO PROVIDER TODAY REGARDING PO VS IV MEDICATIONS. PT IS STILL REQUIRING HIGH FLOW O2. NO FURTHER CONCERNS AT THIS TIME.
[2020-07-18 07:23] LABS: HEMOGLOBIN 10.4 g/dl (13.5-18.0); MEAN CORPUSCULAR HEMOGLOBIN 31 pg (27.0-31.0); MEAN CORPUSCULAR HGB CONC 33 g/dl (33.0-37.0); MEAN PLATELET VOLUME 11.6 fl (7.4-10.4); PLATELET COUNT 278 K/mm3 (130-400); RED BLOOD COUNT 3.41 M/mm3 (4.20-5.60); REDCELL DISTRIBUTION WIDTH-CV 13.9 % (11.5-14.5)
[2020-07-18 07:28] LABS: HEMATOCRIT 31.9 % (42.0-52.0)
[2020-07-18 07:29] LABS: MEAN CELL VOLUME 94 fl (80.0-100.0)
[2020-07-18 07:42] LABS: CALCIUM 8.6 mg/dL (8.4-10.2); CREATININE, serum 1.91 (0.66-1.25); POTASSIUM 3.7 mmol/L (3.4-5.0)
[2020-07-18 07:58] LABS: BAND 2 % (0-10); LYMPHOCYTE 4 % (20.0-51.0); MYELOCYTE 1 % (0-0); NEUTROPHILS 91 % (42.0-75.2); PLATELET ESTIMATE NORMAL (NORMAL)
--- NOTE | 2020-07-18 10:52 | NUR ---
PT WAS TITRATED DOWN TO 10L NC. ASSESSMENT COMPLETED, LUNG SOUNDS ARE DIMINISHD, AND PT WAS ABLE TO EAT HIS ENTIRE BREAKFAST, AND TOOK ALL PO MEDICATIONS CRUSHED IN HIS FOOD. PT DID DRINK 900ML OF WATER WITH HIS BREAKFAST. PT ATTEMTPTED TO SPEAK TODAY, BUT IT WAS INCOMPREHENSIBLE SOUNDS. DR. DONOVAN IS ON THE PHONE WITH SON WHO IS DECIDING BETWEEN HOSPICE OR [facility].
--- NOTE | 2020-07-18 15:04 | NUR ---
The patient's family was allowed to come and visit the patient yesterday evening. CODY was notified that the patient's family has decided to pursue hospice at [facility]. CODY then contacted the patient's son, Nj, to follow up. Nj reports that their visit with the patient went very well last night. He states that the patient was awake and he nodded yes and no to their questions. He states that now him and his family and reconsidering pursing comfort care. Nj states that he would like to talk to the hospitalist first, before making any decisions to pursue comfort care vs continueing treatment. CODY notified the hospitalist. The hospitalist then informed CODY that he spoke to the patient's son and informed him of the patient's options for hospice vs [facility]. The patient's son and family are taking today to consider the options. CODY contacted and faxed updates to Herman at [facility].
--- NOTE | 2020-07-18 18:32 | NUR ---
PT'S SON JUAN ANTONIO CALLED THIS RN. HE STATES THAT HE WAS WAITING FOR SOCIAL WORK TO CALL HIM BACK, AND HE NEVER RECEIVED THE PHONE CALL. HE STATES THAT THE FAMILY HAS DISCUSSED IT, AND THEY ARE READY FOR HIM TO GO TO [facility]. THIS RN DISCUSSED THE PLAN WITH HIM, AND THE FAMILY AGREES TO KEEP THINGS IS FOR TONIGHT, AND WHEN DR. DONOVAN COMES IN, IN THE MORNING TO CALL THE FAMILY THAT THEY CAN BEGIN THE PROCESS OF TRANSFERING TO HOSPICE. WILL ENDORSE TO NIGHT RN THIS EVENING THAT FAMILY WILL BE READY FOR THAT PROCESS IN THE AM.
--- NOTE | 2020-07-18 21:10 | NUR ---
Patient assessed at this time. Alert, moving arms and hands. No verbal resonse from patient. Drinking ice water. TLC to left IJ. Dressing to right IJ from HD catheter removal is CDI. No outward s/sx of pain or discomfort, such as facial grimacing and moaning. On oxygen at 10 L/min via high flow NC. LS CTAin upper lobes, diminished in lower. Respirations even and unlabored. HRI. Telemetry in place: A-fib. Given IV Metoprolol per orders. Refusing oral medications. Capillary refill less than 3 seconds. non-tenting skin turgor. BSAx4. Abdomen soft and non-tender. Indwelling storm catheter patent, and draining clear yellow urine via dependent drainage. 1+ edema. BLE. SCDs on. Resting in bed with call light within reach. High fall risk precautions in place.
--- NOTE | 2020-07-18 21:50 | NUR ---
Patient had zoom call with family for approximately 1 hour. This nurse stayed in room and helped answer family questions for about the first 30 minutes, then propped up tablet so family could continue to talk with patient. Patient continues to be alert and drink fluids well. Is nodding head occasionally when asked yes and no questions. Watching TV.
[2020-07-19 03:07] VITALS: BP 130/74; PULSE 79; TEMP 98
--- NOTE | 2020-07-19 05:22 | NUR ---
Continues on oxygen at 10 L/min via NC. No s/sx of pain or discomfort, such as facial grimacing and moaning. Resting in bed with call light within reach. Had been awake and alert most of shift, but is drowsy at this time. High fall risk precautions in place.
[2020-07-19 07:32] VITALS: BP 138/80; PULSE 82; TEMP 98.6
--- NOTE | 2020-07-19 09:45 | NUR ---
Patient asleep, not unresponsive to voice. Patient opens eyes when stimulated. unable to take PO medications or eat. Patient seem comfortable in bed. continue to rotate patient side to side. Buchanan catheter in place. administered IV medications as ordered. Patient resting in bed at this time. Dr Dorsey mentioned he will call patient's family to discuss POC options (full course treatment or comfort care). patient on 8L O2 at 92%.
[2020-07-19] MEDS ORDERED: TRANSDERM-0.5 MG/21 TD (10:10)
[2020-07-19] MEDS ORDERED: RT Albuterol HFA MDI IH (10:13)
[2020-07-19] MEDS ORDERED: ATIVAN 1MG T1 MG/TAB PO (10:13)
[2020-07-19] MEDS ORDERED: ASPIRIN 32325 MG/TAB PO (10:13)
[2020-07-19] MEDS ORDERED: ROXANOL 20MG20 MG/ML SL (10:13)
[2020-07-19 10:14] VITALS: BP 138/80; PULSE 82; TEMP 98.6
[2020-07-19] MEDS ORDERED: CARDIZEM CD 24240 MG PO (10:14)
[2020-07-19] MEDS ORDERED: TOPROL XL 25MG25 MG PO (10:14)
--- NOTE | 2020-07-19 10:33 | NUR ---
Dr Haley has contacted Nj by phone and was advised by Nj that the family has decided to have him move back to [facility] on hospice services. We will plan on EMS transfer. [employer] social welfare research worker is contacting family to select hospice agency and will arrange for this transfer.
[2020-07-19 11:14] VITALS: BP 132/78; PULSE 96; TEMP 98.2
--- NOTE | 2020-07-19 11:43 | NUR ---
Franchesca, Palliative Care Nurse, notified CODY that the patient's family have decided to pursue hospice at [facility]. CODY contacted the patient's son, Nj, and confirmed this. CODY informed Nj of the different hospice agencies. Nj reports that he does not have a preference. CODY contacted and updated Herman at [facility]. Herman reports that they use [facility] and [facility] and they are okay with with which ever of the two agencies is able to start services today. CODY updated Nj and he is agreeable with [facility]. CODY contacted and faxed a referral to Sally at [facility]. Sally reports that they are able to accept the patient for services today. The patient is to discharge today, 07/19, back to [facility] on hospice from [facility]. Transportation was scheduled at 1300, via [facility]. CODY informed the patient's RN, KIRTI, Ilya, and Nj of the time. They were all agreeable to the time. CODY also read the IM Form and EMS Transfer Consent Forms outloud to Nj over the phone. Nj verbalized understanding and gave SW approval to sign the forms on his behalf. No additional needs at this time.
--- NOTE | 2020-07-19 14:04 | NUR ---
Patient about to leave premises, Called report to [facility] emergency department to give report to the receiving nurse. frontload driver staff transferred call to nurse number, call went to voicemail, left message and direct number to reach.
--- NOTE | 2020-07-19 14:18 | NUR ---
Dr Dorsey authorize triple lumen to be removed, Buchanan catheter to be left in place.
--- NOTE | 2020-07-19 14:29 | NUR ---
Daren from [facility] called to receive report from this RN. RN called Nj Lancaster- patient son, to inform him of the transfer to [facility]. Triple lumen on [facility]J discontinued. Patient discharged.
== END 2020-07-19 14:08 | disposition hospice, inpatient (51) | DRG 177 ==
LOC: COL.ER 12:48 → PEDS 14:56 → ICU 14:56 → PEDS 07-12 07:18
PROVIDERS: Emergency Medicine; Internal Medicine Critical Care Medicine; Internal Medicine Nephrology; Nurse Practitioner Family; Physician Assistant; Surgery; ADMIT Internal Medicine
PROC: 02HV33Z Insertion of Infusion Device into Superior Vena Cava, Percutaneous Approach (ICD-10-PCS; principal; 2020-07-09)
DX: U07.1 COVID-19 (principal); J96.01 Acute respiratory failure with hypoxia; J12.82 Pneumonia due to coronavirus disease 2019; I63.9 Cerebral infarction, unspecified; G93.41 Metabolic encephalopathy; I21.A1 Myocardial infarction type 2; I33.0 Acute and subacute infective endocarditis; I48.20 Chronic atrial fibrillation, unspecified; I50.32 Chronic diastolic (congestive) heart failure; N17.9 Acute kidney failure, unspecified; E87.0 Hyperosmolality and hypernatremia; E87.2 Acidosis; G72.81 Critical illness myopathy; Z66 Do not resuscitate; Z51.5 Encounter for palliative care; I11.0 Hypertensive heart disease with heart failure; N40.0 Benign prostatic hyperplasia without lower urinary tract symptoms; I48.91 Unspecified atrial fibrillation; E78.5 Hyperlipidemia, unspecified; E11.65 Type 2 diabetes mellitus with hyperglycemia; F32.9 Major depressive disorder, single episode, unspecified; E87.5 Hyperkalemia; D64.9 Anemia, unspecified; B95.7 Other staphylococcus as the cause of diseases classified elsewhere; I25.10 Atherosclerotic heart disease of native coronary artery without angina pectoris; E83.39 Other disorders of phosphorus metabolism; Z86.73 Personal history of transient ischemic attack (TIA), and cerebral infarction without residual deficits; Z79.84 Long term (current) use of oral hypoglycemic drugs; Z87.891 Personal history of nicotine dependence; Z98.2 Presence of cerebrospinal fluid drainage device
CPT/HCPCS: 87522; 99223-AI; 99232-AI; 99233-AI; 99239; J0696; J0878; J1100; J1450; J1644; J1815; J1940; J1953; J3430; J7030; J8540